=== PATIENT | male | born 1980 | race African-American/Black ===

== ENCOUNTER 2019-03-17 16:51 | Emergency (ER) | payer SELFPAY ==
[2019-03-17 17:01] VITALS: BP 179/103; PULSE 66; RESP 20; TEMP 36.4; O2SAT 100
--- NOTE | 2019-03-17 17:24 | ED.GENADULT ---
HPI - General Adult General Chief complaint: Skin/Abscess/Foreign Body Stated complaint: Pos allergic reaction Time Seen by Provider: 03/17/19 17:24 Source: patient and RN notes reviewed Mode of arrival: ambulatory Limitations: no limitations History of Present Illness HPI narrative: 38-year-old -Turkmen male presents with complaints of sulfa blister, raised, red, and tender rash to bilateral upper extremities and right anterior thigh with intermittent drainage for 21 days. Benadryl, last 03/16/2019 without relief. Oswaldo says he is Allergic to Sulfa and used body soap that contained sulfa. Rash noticed 3 weeks ago and symptoms increased over the last 3 days with redness, warmth, tenderness, and swelling, worse to LT upper extremity. Oswaldo says he had a similar episode related to a sulfa antibiotic about 5 years ago. Denies radiation of tenderness, redness, or swelling. No exacerbating factors. Denies fever or chills. Denies nausea, vomiting, and abdominal pain. Has not sought treatment before now due to loss of insurance. Some parts of this dictation were generated by voice recognition software and may contain typographical and/or grammatical inaccuracies. Related Data Home Medications Medication Instructions Recorded Confirmed diphenhydramine HCl [Benadryl] 25 mg PO Q6H PRN 03/17/19 03/17/19 Allergies Allergy/AdvReac Type Severity Reaction Status Date / Time Sulfa (Sulfonamide Allergy Unknown Blister Verified 03/17/19 17:11 Antibiotics) Review of Systems Review of Systems: Narrative: CONSTITUTIONAL: Denies fever, chills, sweats. EYES: Denies visual changes, redness, discharge. ENT: Denies rhinorrhea, congestion, sore throat, otalgia. CARDIOVASCULAR: Denies chest pain, palpitations, edema. RESPIRATORY: Denies dyspnea, wheezing, cough. GASTROINTESTINAL: Denies abdominal pain, nausea, vomiting, diarrhea. GENITOURINARY: Denies dysuria, hematuria, abnormal discharge. SKIN: Complains of sulfa blister, raised, red, and tender rash to bilateral upper extremities and right anterior thigh. Intermittent drainage. MUSCULOSKELETAL: Denies acute back pain, joint pain, or myalgia. NEUROLOGIC: Denies numbness or focal weakness. PSYCHIATRIC: Denies anxiety or depression. All systems reviewed & are unremarkable except as noted in HPI and below PMFSH Past Medical History Medical History (Updated 03/18/19 @ 15:33 by SAVANNAH Jolley) Hypertension Left knee injury 03/2016- Left anteromedial knee hematoma-Aspiration Surgical History Surgical History (Updated 03/17/19 @ 17:44 by SAVANNAH Jolley) No significant past surgical history Family History Family History (Updated 03/17/19 @ 17:44 by SAVANNAH Jolley) Grandparent Hypertension Social History Social History (Updated 03/17/19 @ 17:45 by SAVANNAH Jolley) Smoking status: Current every day smoker Tobacco type: cigarettes Alcohol intake: never Substance use: never Living arrangements: with family Gender identity (if verbalized by the patient): Male Comments At time of signature, agree with nurse past medical, surgical, social, and family history. There is no relevant family history pertinent to the presenting complaint. Exam Narrative: Exam Narrative: GENERAL: This is a well-nourished, well-developed patient, in no apparent distress. HEAD: normocephalic, atraumatic. EYES: PERRL. Sclera clear/white. Vision is grossly intact. CARDIOVASCULAR: Regular rate and rhythm without murmurs, gallops, or rubs. RESPIRATORY: Clear to auscultation. Breath sounds equal bilaterally. No wheezes, rales, or rhonchi. GASTROINTESTINAL: Abdomen soft, non-tender, nondistended. Bowel sounds are active. No hepato-splenomegaly, or palpable masses. No guarding. SKIN: warm, several areas to bilateral upper extremities with pustules and honey-colored, crusted erosions with collarets of scale. Consist with Impetigo. BUE and small area to RT
--- NOTE | 2019-03-17 17:50 | PC.NURSE ---
Left 2,3,4 fingers having weeping wounds he says is from scratching areas on proximal portions-cleansed with saline and dressed with bandaids
== END 2019-03-17 17:50 | disposition home or self-care (01) ==
PROVIDERS: Emergency Provider Nurse Practitioner Family; PCP Emergency Medicine
DX: L03.012 Cellulitis of left finger (principal); L01.00 Impetigo, unspecified; T78.40XA Allergy, unspecified, initial encounter; F17.210 Nicotine dependence, cigarettes, uncomplicated; I10 Essential (primary) hypertension
CPT/HCPCS: 99213; G0463

== ENCOUNTER 2019-03-23 12:45 | Emergency (ER) | payer SELFPAY ==
[2019-03-23 12:46] VITALS: BP 158/89; PULSE 90; RESP 16; TEMP 36.3; O2SAT 100
[2019-03-23] MEDS: predniSONE 20 MG TABLET 60 MG PO (13:33)
[2019-03-23 13:57] LABS: Basophils Absolute Auto 0.1 K/mm3 (0.0-0.1); Basophils Percent Auto 0.9 % (0.2-1.2); Eosinophils Absolute Auto 0.5 K/mm3 (0-0.3); Eosinophils Percent Auto 5.9 % (0-4.4); Hematocrit 44.1 % (42.0-52.0); Hemoglobin 14.4 g/dL (14.0-18.0); Immature Granulocyte Absolute 0.03 K/mm3 (0.00-0.031); Immature Granulocyte Percent A 0.4 % (0-0.5); Lymphocytes Absolute Auto 1.42 K/mm3 (0.9-3.2); Lymphocytes Percent Auto 18.6 % (18.3-44.2); Mean Corpuscular HGB Conc 32.7 g/dl (32-36); Mean Corpuscular Hemoglobin 28.2 pg (26-34); Mean Corpuscular Volume 86.5 fl (80-100); Mean Platelet Volume 10.9 fl (7.4-10.4); Monocytes Absolute Auto 0.8 K/mm3 (0.1-0.6); Monocytes Percent Auto 10.1 % (2.6-8.5); Neutrophils Absolute Auto 4.9 K/mm3 (1.3-6.7); Neutrophils Percent Auto 64.1 % (45.5-73.1); Platelet Count Result 245 k/mm3 (150-375); Red Cell Distribution Width 13.2 % (11.5-14.5); White Blood Count 7.7 K/mm3 (4.5-10.0)
[2019-03-23 14:09] LABS: Blood Urea Nitrogen 14 mg/dL (9-20); Calcium 9.1 mg/dL (8.4-10.2); Carbon Dioxide 21 mmol/L (22-30); Chloride 108 mmol/L (98-107); Estimated Glomerular Filt Rate > 60; Glucose 97 mg/dL (75-110); Potassium 3.8 mmol/L (3.4-5.0); Sodium 142 mmol/L (137-145)
--- NOTE | 2019-03-23 14:34 | ED.UPPEXIN ---
HPI - Extremity Injury (Upper) General Chief Complaint: Extremity Injury, Upper Stated Complaint: cellulitis Time Seen by Provider: 03/23/19 13:19 Source: patient Mode of arrival: ambulatory Limitations: no limitations History of Present Illness HPI narrative: Patient is a 38-year-old male who presents to emergency department for evaluation of rash has been present for 1 month patient is unsure as to the etiology thought it might be secondary to a sulfa-containing lotion that he had used patient was seen at urgent care started on clindamycin and mupirocin with no improvement patient notes blistering itching rash to the hands and torso and abdomen. Patient denies any fever chills nausea vomiting. Patient has been taking the medications with no improvement has not followed with primary care for this Related Data Allergies Allergy/AdvReac Type Severity Reaction Status Date / Time Sulfa (Sulfonamide Allergy Unknown Blister Verified 03/23/19 12:59 Antibiotics) Review of Systems Review of Systems: All systems reviewed & are unremarkable except as noted in HPI and below PMFSH Past Medical History Medical History Hypertension Left knee injury 03/2016- Left anteromedial knee hematoma-Aspiration Surgical History Surgical History No significant past surgical history Family History Family History (Updated 03/17/19 @ 17:44 by SAVANNAH Jolley) Grandparent Hypertension Social History Social History Smoking status: Current every day smoker Tobacco type: cigarettes Alcohol intake: never Substance use: never Gender identity (if verbalized by the patient): Male Exam Narrative: Exam Narrative: GENERAL: Well-appearing, well-nourished, and in no acute distress. HEAD: Normocephalic, atraumatic. EYES: PERRLA and EOMI. ENT: Nares clear, no rhinorrhea or epistaxis. Mucous membranes moist. EXTREMITIES: Normal range of motion. No edema. SKIN: Warm, dry patient with rash to the torso and extremities with some blistering clear fluid of some of the lesions others with 6 corrugations from itching no purulence lymphangitic streaking noted NEURO: No focal deficits. Alert and oriented x3. Cranial nerves II through XII grossly intact. Normal speech. Neurovascularly intact PSYCH: Normal mood and affect. Course Course Emergency Course: Patient in the room in no distress aware of case findings treatment plan and diagnosis Vital Signs Vital signs: Vital Signs Temperature 97.4 F L 03/23/19 12:46 Pulse Rate 90 03/23/19 12:46 Respiratory Rate 16 03/23/19 12:46 Blood Pressure 158/89 H 03/23/19 12:46 Pulse Oximetry 100 03/23/19 12:46 Temperature 97.4 F L 03/23/19 12:46 Pulse Rate 90 03/23/19 12:46 Respiratory Rate 16 03/23/19 12:46 Blood Pressure 158/89 H 03/23/19 12:46 Pulse Oximetry 100 03/23/19 12:46 MDM - Extremity Injury (Upper) MDM Narrative Medical decision making narrative: Patient in the room with likely allergic syndrome will be referred to his md physician dermatologist and is agreeing to contact his md physician dermatologist tomorrow is afebrile nontoxic-appearing and felt appropriate for outpatient reevaluation also provided with reasons to return Lab Data Result diagrams: 03/23/19 13:47 03/23/19 13:47 Labs: Lab Results 03/23/19 03/23/19 Range/Units 13:47 13:47 WBC 7.7 (4.5-10.0) K/mm3 RBC 5.10 (4.6-6.20) M/mm3 Hgb 14.4 (14.0-18.0) g/dL Hct 44.1 (42.0-52.0) % MCV 86.5 (80-100) fl MCH 28.2 (26-34) pg MCHC 32.7 (32-36) g/dl RDW 13.2 (11.5-14.5) % Plt Count 245 (150-375) k/mm3 MPV 10.9 H (7.4-10.4) fl Immature Gran % (Auto) 0.4 (0-0.5) % Neut % (Auto) 64.1 (45.5-73.1) % Lymph % (Auto) 18.6 (18.3-44.2) % [place] % (Auto) 10.1 H (2.6-8.5) %
== END 2019-03-23 15:49 | disposition home or self-care (01) ==
PROVIDERS: Emergency Medicine Emergency Medical Services; Emergency Provider Emergency Medicine; PCP Emergency Medicine
DX: R21 Rash and other nonspecific skin eruption (principal); I10 Essential (primary) hypertension; F17.210 Nicotine dependence, cigarettes, uncomplicated
CPT/HCPCS: 36415; 80048; 85025; 99283; J7512

== ENCOUNTER 2022-03-12 12:19 | Inpatient (IN) | payer OTHER, SELFPAY ==
[2022-03-12] VITALS (13 sets, daily range): BP systolic 135–148; BP diastolic 66–85; PULSE 57–81; RESP 16–20; TEMP 36.2–36.8; O2SAT 99–100; BMI 34.0
--- NOTE | ~2022-03-12 | XR_ITS ---
Right foot Technique: AP and lateral views were obtained. Clinical History: Swelling, cellulitis Findings: No acute fracture or dislocation is seen. Osseous alignment is anatomic. Mild degenerative change noted on the lateral view at the naviculocuneiform articulations and at the TMT joints. Promin ent dorsal soft tissue swelling is present. Impression: Prominent dorsal soft tissue swelling the foot, consistent with history cellulitis. Mild Mild degenerative change, as detailed above. Reviewed, dictated and finalized at location M. GANG SAWYER Impression: Prominent dorsal soft tissue swelling the foot, consistent with history celluli tis. Mild Mild degenerative change, as detailed above.
--- NOTE | ~2022-03-12 | US_ITS ---
Duplex Sonography of the right extremity: Indication: Swelling, erythema Findings: Sagittal and transverse B-mode images as well as color-flow imaging were performed on the r ight femoral and popliteal veins. B-mode examination was done without and with compression in the tr ansverse plane. There is good visualization of the common femoral, proximal profunda femoral, superf icial femoral, greater saphenous, and popliteal veins. Normal flow was seen on color-flow imaging. N ormal compressibility was demonstrated. Right posterior tibial and peroneal veins are also patent. Impression: No evidence of deep vein thrombosis involving the right lower extremity. Reviewed, dictated and finalized at location M. URAL CENTRE MANAGER Impression: No evidence of deep vein thrombosis involving the right lower extremity.
--- NOTE | ~2022-03-12 | US_ITS ---
Renal-Bladder ultrasound Clinical History: Renal failure Technique: Real-time sonographic imaging of the kidneys and urinary bladder was performed. Findings: The right kidney measures 11.5 cm in length and the left kidney measures 10.4 cm. There is no hydronephrosis or renal calculus identified. Renal cortical echogenicity is within normal limits. No renal mass lesion is identified. The urinary bladder is moderately distended at the time of this exam. No intraluminal echoes are iden tified. No abnormal wall thickening is seen. Impression: Unremarkable ultrasound of the kidneys and urinary bladder. Reviewed, dictated and finalized at location M. R THREAT ANALYST Impression: Unremarkable ultrasound of the kidneys and urinary bladder.
--- NOTE | 2022-03-12 14:35 | ED.SKABFB ---
HPI - Skin/Abscess/Foreign Bdy General Chief complaint: Skin/Abscess/Foreign Body Stated complaint: right leg infection Time Seen by Provider: 03/12/22 14:19 History of Present Illness HPI narrative: Patient is a 41-year-old male here for evaluation of right foot redness and swelling x 7 days. Patient states he has a history of cellulitis in the limb and this feels similar. He saw his PCP 4 days ago who prescribed keflex; patient has been taking this without improvement. States redness and swelling is spreading proximally. He does state he has been admitted for cellulitis in the past. Reports subjective fevers but has not taken his temperature. Patient did have left hip surgery at outside hospital 3 weeks ago. Denies history of DVT. Related Data Home Medications Medication Instructions Recorded Confirmed ascorbic acid (vitamin C) 500 mg 500 mg PO DAILY 03/12/22 03/12/22 chewable tablet atorvastatin 80 mg tablet 80 mg PO HS 03/12/22 03/12/22 cephalexin 500 mg capsule 500 mg PO BID 03/12/22 03/12/22 cholecalciferol (vitamin D3) 1,250 1,250 mcg PO WEEKLY 03/12/22 03/12/22 mcg (50,000 unit) tablet ezetimibe 10 mg tablet 10 mg PO HS 03/12/22 03/12/22 hydroxyzine HCl 25 mg tablet 25 mg PO PRN itch 03/12/22 03/12/22 losartan 100 mg tablet 100 mg PO DAILY 03/12/22 03/12/22 meloxicam 15 mg tablet 15 mg PO DAILY 03/12/22 03/12/22 Allergies Allergy/AdvReac Type Severity Reaction Status Date / Time Sulfa (Sulfonamide Allergy Unknown Blister Verified 03/12/22 14:21 Antibiotics) Review of Systems Review of Systems: Gen: Denies fevers or chills Eyes: Denies eye pain or visual change ENT: Denies congestion Respiratory: Denies shortness of breath or cough CV: Denies chest pain or palpitations GI: Denies abdominal pain nausea, emesis or diarrhea : denies burning, urgency, frequency or hematuria Musculoskeletal: Denies back pain or muscle pain Neuro: Denies numbness, tingling, weakness or focal weakness Skin: Reports redness and swelling to the right lower extremity Except as documented, all other systems reviewed and negative PMFSH Past Medical History Medical History (Updated 03/12/22 @ 15:52 by Mary Almaguer PA-C) Hypertension Left knee injury 03/2016- Left anteromedial knee hematoma-Aspiration Surgical History Surgical History No significant past surgical history Family History Family History (Updated 03/17/19 @ 17:44 by SAVANNAH Jolley) Grandparent Hypertension Social History Social History Smoking packs per day: 0.25 Smoking cigarettes per day: 5.0 Smoking status: Current every day smoker Tobacco type: cigarettes Alcohol intake: never Substance use: never Lack of Transportation: No Lack of Food: Never True Current Housing: I Have Housing Concerned About Future Housing: No Difficulty Paying Gas/Electric Bills: No Difficulty Paying for Meds: No Currently Unemployed: YES Education: Associate Degree Difficulty w/ Childcare or Family Care: No Living arrangements: with family Gender identity (if verbalized by the patient): Male Spiritual care concerns: No Exam Narrative: APPEARANCE: Well appearing, no pain in distress, well-nourished. Head: Normocephalic and atraumatic. EYES: PERRLA/EOMI, conjunctivae clear NOSE: No nasal drainage EARS: External ear normal in appearance THROAT: Oropharynx is clear. Mucous membranes are moist. NECK: Supple. No adenopathy, no masses. RESPIRATORY: Airway patent, respirations nonlabored. Clear to auscultation bilaterally, no rales, rhonchi, wheezing. CARDIOVASCULAR: Regular rate and rhythm without murmurs, rubs, or gallops. ABDOMINAL: Normoactive bowel sounds. Soft, nontender, nondistended. No rebound tenderness or guarding. MUSCULOSKELETAL: Right lower extremity is markedly swollen from the foot
[2022-03-12 14:52] LABS: Basophils Absolute Auto 0.1 K/mm3 (0.0-0.1); Basophils Percent Auto 0.7 % (0.2-1.2); Eosinophils Absolute Auto 0.1 K/mm3 (0-0.3); Eosinophils Percent Auto 0.7 % (0-4.4); Hematocrit 36.6 % (42.0-52.0); Hemoglobin 11.6 g/dL (14.0-18.0); Immature Granulocyte Absolute 0.86 K/mm3 (0.00-0.031); Immature Granulocyte Percent A 5.2 % (0-0.5); Lymphocytes Absolute Auto 1.46 K/mm3 (0.9-3.2); Lymphocytes Percent Auto 8.9 % (18.3-44.2); Mean Corpuscular HGB Conc 31.7 g/dl (32-36); Mean Corpuscular Hemoglobin 27.3 pg (26-34); Mean Corpuscular Volume 86.1 fl (80-100); Mean Platelet Volume 9.6 fl (7.4-10.4); Monocytes Absolute Auto 1.3 K/mm3 (0.1-0.6); Monocytes Percent Auto 7.8 % (2.6-8.5); Neutrophils Absolute Auto 12.6 K/mm3 (1.3-6.7); Neutrophils Percent Auto 76.7 % (45.5-73.1); Platelet Count Result 527 k/mm3 (150-375); Red Blood Count 4.25 M/mm3 (4.6-6.20); Red Cell Distribution Width 13.4 % (11.5-14.5); White Blood Count 16.5 K/mm3 (4.5-10.0)
[2022-03-12 15:01] LABS: Lactic Acid Reflex 1.8 mmol/L (0.7-2.0)
[2022-03-12 15:02] LABS: Alanine Aminotransferase 25 U/L (6-50); Albumin Level 3.5 g/dL (3.5-5.1); Alkaline Phosphatase 138 U/L (38-126); Anion Gap 4 mmol/L (8-16); Aspartate Amino Transferase 30 U/L (17-59); Bilirubin,Total 0.7 mg/dL (0.2-1.3); Blood Urea Nitrogen 18 mg/dL (9-20); Calcium 8.8 mg/dL (8.4-10.2); Carbon Dioxide 26 mmol/L (22-30); Chloride 106 mmol/L (98-107); Estimated CRCL calculation 104 ml/min; Estimated Glomerular Filt Rate > 60; Glucose 123 mg/dL (65-110); Potassium 3.3 mmol/L (3.4-5.0); Sodium 136 mmol/L (137-145)
[2022-03-12 15:17] LABS: INR 1.2; Prothrombin Time 14.3 Seconds (11.1-14.7)
[2022-03-12 15:18] LABS: Partial Thromboplastin Time 35.2 SECONDS (22.3-36.8)
[2022-03-12 15:27] LABS: Influenza A QL RT-PCR Negative (Negative); Influenza B QL RT-PCR Negative (Negative); SARS-CoV-2 RNA PCR Negative
[2022-03-12 15:31] LABS: Hypochromasia 1+ (NORMAL); Platelet Estimate Increased (Adequate)
[2022-03-12 15:32] LABS: Schistocytes None Seen (NORMAL)
[2022-03-12] MEDS: HYDROcodone/acetaminophen (*CRX) 5-325 MG TABLET 1 TAB PO (15:59)
--- NOTE | 2022-03-12 21:33 | PM.IMHP ---
H&P: HPI History of Present Illness Date/Time: 03/12/22 8660 Chief Complaint: Skin abscess Narrative: This is a 41-year-old male patient who has a history of athlete's feet and he has dry scaly peeling skin on the bottom of his feet. The patient stated that he started to pick on the bottom of his right foot several days ago and then his foot started to swell 7 days ago. The patient saw his primary care doctor 4 days ago who was prescribed Keflex the patient stated that he did not have any improvement and the redness and swelling spread proximally. The patient has had a history of having cellulitis in the past. The patient is unsure if he has had any fever. His right leg is red and swollen. The patient is recovering from a left hip surgery anterior review from outside facility 3 weeks ago. He denies any DVT. His white count is 16.5 H&H 11.6 and 36.6. Sodium is 136. Potassium 3.3. The patient is negative for influenza A/B and COVID. The patient did have a venous Doppler today and is read as no evidence of deep vein thrombosis involving the right lower extremity as per radiology. The patient was started on vancomycin and given [place] in the emergency room. The patient is being admitted to observation status on the date of service 03/12/2022 Review of Systems Review of Systems: See HPI All systems reviewed & are unremarkable except as noted in HPI and below Constitutional: Constitutional: Reports as per HPI and Reports no additional constitutional complaints Eyes: Eyes: Reports as per HPI and Reports no additional eye complaints ENT: Reports system reviewed and no additional complaints, except as documented and Reports Normal hearing present Cardiovascular: Cardiovascular: Reports no additional cardiovascular complaints Respiratory: Respiratory: Reports no additional respiratory complaints and Reports no additional respiratory complaints Gastrointestinal: Gastrointestinal: Reports as per HPI and Reports no additional gastrointestinal complaints Musculoskeletal: Musculoskeletal: Reports no additional musculoskeletal complaints Integumentary/Breasts: Skin/Breast: Reports system reviewed and no additional complaints, except as docu and Reports as per HPI Neurologic: Reports system reviewed and no additional complaints, except as documented, Reports as per HPI and Reports Normal hearing present Psychiatric: Psychiatric: Reports no additional psychiatric complaints and Reports as per HPI Endocrine: Endocrine: Reports no additional endocrine complaints Hematologic/Lymphatic: Hematologic/Lymphatic: Reports no additional hematologic/lymphatic complaints Allergic/Immunologic: Allergic/Immunologic: Reports no additional allergic/immunologic complaints PMFSH Past Medical History Medical History (Updated 03/12/22 @ 21:59 by Tia Culp NP) Eczema Hyperlipidemia Hypertension Left knee injury 03/2016- Left anteromedial knee hematoma-Aspiration Emily-Schlatter/osteochondroses Osteoarthritis Vitamin D deficiency Surgical History Surgical History (Updated 03/12/22 @ 21:42 by Tia Culp NP) History of left hip replacement Total knee replacement status Bilateral Family History Family History (Updated 03/12/22 @ 21:42 by Tia Culp NP) Grandparent Hypertension Glaucoma MIKE on CPAP Social History Social History (Updated 03/12/22 @ 21:40 by Tia Culp NP) Social History: The patient stated that he smokes 1 pack in about 3-4 days. The patient is currently unemployed. He has a significant other but is classified is single. He has no children. The patient stated that he has not smoked in a week. He denies any alcohol disease. Code status full code Smoking packs per day: 0.25 Smoking cigarettes per day: 5.0 Smoking status: Current every day smoker Tobacco type: cigarettes Alcohol intake: never Substance use: never Lack of Transportation: No Lack of Food: Never Shreyas
[2022-03-12] MEDS: POTASSIUM CHLORIDE 20 MEQ PACKET (FOR LIQUID) PO (23:59)
[2022-03-13 06:00] VITALS: BP 146/90; PULSE 61; RESP 16; TEMP 35.8; O2SAT 99
[2022-03-13 06:33] LABS: Basophils Absolute Auto 0.1 K/mm3 (0.0-0.1); Basophils Percent Auto 0.7 % (0.2-1.2); Eosinophils Absolute Auto 0.3 K/mm3 (0-0.3); Eosinophils Percent Auto 1.5 % (0-4.4); Hematocrit 32.7 % (42.0-52.0); Hemoglobin 10.2 g/dL (14.0-18.0); Immature Granulocyte Absolute 0.97 K/mm3 (0.00-0.031); Immature Granulocyte Percent A 5.9 % (0-0.5); Lymphocytes Absolute Auto 1.65 K/mm3 (0.9-3.2); Mean Corpuscular HGB Conc 31.2 g/dl (32-36); Mean Corpuscular Hemoglobin 27.2 pg (26-34); Mean Corpuscular Volume 87.2 fl (80-100); Mean Platelet Volume 9.5 fl (7.4-10.4); Monocytes Absolute Auto 1.4 K/mm3 (0.1-0.6); Monocytes Percent Auto 8.6 % (2.6-8.5); Neutrophils Percent Auto 73.3 % (45.5-73.1); Platelet Count Result 445 k/mm3 (150-375); Red Blood Count 3.75 M/mm3 (4.6-6.20); Red Cell Distribution Width 13.4 % (11.5-14.5); White Blood Count 16.4 K/mm3 (4.5-10.0)
[2022-03-13 06:38] LABS: Alanine Aminotransferase 24 U/L (6-50); Albumin Level 2.9 g/dL (3.5-5.1); Alkaline Phosphatase 114 U/L (38-126); Anion Gap 6 mmol/L (8-16); Aspartate Amino Transferase 28 U/L (17-59); Bilirubin,Total 0.5 mg/dL (0.2-1.3); Blood Urea Nitrogen 17 mg/dL (9-20); Calcium 8.1 mg/dL (8.4-10.2); Carbon Dioxide 24 mmol/L (22-30); Chloride 107 mmol/L (98-107); Estimated CRCL calculation 104 ml/min; Estimated Glomerular Filt Rate > 60; Glucose 127 mg/dL (65-110); Lactate Dehydrogenase 163 U/L (120-246); Potassium 3.3 mmol/L (3.4-5.0); Sodium 137 mmol/L (137-145)
[2022-03-13 07:03] LABS: Hypochromasia 1+ (NORMAL); Platelet Estimate Increased (Adequate); Stomatocytes 1+ (NORMAL)
[2022-03-13 07:04] LABS: Schistocytes None Seen (NORMAL)
[2022-03-13] MEDS: MELOXICAM 7.5 MG TABLET 15 MG PO (08:33)
[2022-03-13] MEDS: ERGOCALCIFEROL 50,000 UNITS CAPSULE 50000 UNITS PO (08:33)
[2022-03-13] MEDS: LOSARTAN POTASSIUM 100 MG TABLET PO (08:33)
[2022-03-13] MEDS: ENOXAPARIN 40 MG/0.4 ML SYRINGE SUB-Q (08:33)
[2022-03-13] MEDS: ASCORBIC ACID 500 MG TABLET PO (08:34)
[2022-03-13] MEDS: MUPIROCIN 2% OINT 22 GM TUBE 1 APPLIC TOPICAL ×2 (08:34→16:54)
[2022-03-13] MEDS: EUCERIN CREAM 120 GM JAR 1 APPLIC TOPICAL (08:34)
[2022-03-13 14:00] VITALS: BP 138/65; PULSE 68; RESP 14; TEMP 36.3; O2SAT 100
[2022-03-13] MEDS: POTASSIUM CHLORIDE 20 MEQ TABLET 40 MEQ PO (14:29)
--- NOTE | 2022-03-13 15:41 | PM.IMPN ---
Progress Note: A&P Assessment and Plan (1) Cellulitis: Code(s): L03.90 - Cellulitis, unspecified Status: Acute Assessment and Plan: Patient has had history of cellulitis in the past some same foot. Lasted since about 5 years ago. Infection site identified between the 4th and 5th toes of the right foot. Said that he was picking at some skin and had torn some skin off of the foot. No history of diabetes. Will order A1c. Antibiotics changed to vancomycin and cefepime per up-to-date guidelines Tailor antibiotic to culture results. Leukocytosis present Blood cultures pending Patient with significant edema. Add 40 mg IV Lasix q.d.. Advise limb elevation (2) Hypertension: Code(s): I10 - Essential (primary) hypertension Status: Acute Assessment and Plan: -continue with losartan (3) Hyperlipidemia: Code(s): E78.5 - Hyperlipidemia, unspecified Status: Acute Assessment and Plan: -continue with Zetia (4) Hypokalemia: Code(s): E87.6 - Hypokalemia Status: Acute Assessment and Plan: Replace as necessary Magnesium level normal. Time Spent With Patient Time with patient: 25 - 35 minutes Subjective Date/time seen: 03/13/22 15:41 Interval history: Patient resting in bed comfortably. Patient states that right foot swelling began a little over a week ago. Patient had been picking at some dried skin on his foot and he woke up the next day with significant edema to the right foot extending up the leg. Patient had associated fevers in the beginning but has not had a fever and a couple days. Patient has no known history of diabetes. Patient is status post left hip replacement 3 weeks ago. Patient denies pain but states that the foot feels very heavy and has a lot of pressure on the skin. No history of neuropathy. Review of Systems Review of Systems: All systems reviewed & are unremarkable except as noted in HPI and below Exam Narrative: GENERAL: Comfortable, no acute distress HENMT: moist mucous membranes EYES: EOM intact b/l NECK: no lymphadenopathy RESPIRATORY: clear to auscultation CARDIO: RRR GI: soft, nontender, bowel sounds present SKIN: Left limb from the knee down is edematous and erythematous. Skin is warm to touch. Plus three pitting edema. Blistering noted over left distal cortés. Dorsalis pedis pulses palpable. EXTREMITIES: Patient able to move left ankle and left knee. Although due to edema range of motion is limited. Objective Data Vital Signs Vital Signs: Vital Signs - 24 hr 03/12/22 15:46 03/12/22 15:47 03/12/22 15:57 Temperature Pulse Rate 67 Respiratory Rate 16 Blood Pressure 138/71 Pulse Oximetry 100 100 100 Oxygen Delivery 03/12/22 16:00 03/12/22 16:15 03/12/22 16:17 Temperature Pulse Rate Respiratory Rate 16 Blood Pressure 146/82 H Pulse Oximetry 100 99 100 Oxygen Delivery 03/12/22 16:32 03/12/22 18:01 03/12/22 21:35 Temperature 97.2 F L Pulse Rate 62 69 Respiratory Rate 16 16 Blood Pressure 138/70 146/78 H Pulse Oximetry 100 Oxygen Delivery Room Air 03/13/22 06:00 03/13/22 08:00 03/13/22 14:00 Temperature 96.4 F L 97.4 F L Pulse Rate 61 68 Respiratory Rate 16 14 Blood Pressure 146/90 H 138/65 Pulse Oximetry 99 100 Oxygen Delivery Room Air Intake/Output Intake/Output: Intake & Output 03/10/22 03/11/22 03/12/22 03/13/22 23:59 23:59 23:59 23:59 Intake Total 440 320 Balance 440 320 Meds/Results Medications: Active Medications Generic Name Dose Route Start Last Admin Trade Name Freq PRN Reason Stop Dose Admin Ascorbic Acid 500 mg 03/13/22 09:00 03/13/22 08:34 Ascorbic Acid 500 Mg Tablet PO 500 mg DAILY [facility]1983 Administration Atorvastatin Calcium 80 mg 03/13/22 21:00 Atorvastatin 40 Mg Tablet PO [facility] Ezetimibe 10 mg 03/13/22 21:00 Ezetimibe 10 Mg Tablet
[2022-03-13] MEDS: ATORVASTATIN 40 MG TABLET 80 MG PO (20:06)
[2022-03-13] MEDS: PHARMACIST COMMUNICATION ORDER 1 EACH XX (20:07)
[2022-03-13] MEDS: EZETIMIBE 10 MG TABLET PO (20:07)
[2022-03-13 22:00] VITALS: BP 132/73; PULSE 66; RESP 14; TEMP 36.2; O2SAT 100
[2022-03-14 03:01] LABS: Basophils Absolute Auto 0.1 K/mm3 (0.0-0.1); Basophils Percent Auto 0.5 % (0.2-1.2); Eosinophils Absolute Auto 0.2 K/mm3 (0-0.3); Eosinophils Percent Auto 1.3 % (0-4.4); Hematocrit 32.2 % (42.0-52.0); Hemoglobin 10.2 g/dL (14.0-18.0); Immature Granulocyte Absolute 0.77 K/mm3 (0.00-0.031); Immature Granulocyte Percent A 4.7 % (0-0.5); Lymphocytes Absolute Auto 1.82 K/mm3 (0.9-3.2); Lymphocytes Percent Auto 11.1 % (18.3-44.2); Mean Corpuscular HGB Conc 31.7 g/dl (32-36); Mean Corpuscular Hemoglobin 27.5 pg (26-34); Mean Corpuscular Volume 86.8 fl (80-100); Mean Platelet Volume 9.4 fl (7.4-10.4); Monocytes Absolute Auto 1.3 K/mm3 (0.1-0.6); Monocytes Percent Auto 8.1 % (2.6-8.5); Neutrophils Absolute Auto 12.2 K/mm3 (1.3-6.7); Neutrophils Percent Auto 74.3 % (45.5-73.1); Platelet Count Result 451 k/mm3 (150-375); Red Blood Count 3.71 M/mm3 (4.6-6.20); Red Cell Distribution Width 13.2 % (11.5-14.5); White Blood Count 16.4 K/mm3 (4.5-10.0)
[2022-03-14 03:12] LABS: Alanine Aminotransferase 23 U/L (6-50); Albumin Level 2.9 g/dL (3.5-5.1); Alkaline Phosphatase 111 U/L (38-126); Anion Gap 3 mmol/L (8-16); Aspartate Amino Transferase 28 U/L (17-59); Bilirubin,Total 0.7 mg/dL (0.2-1.3); Blood Urea Nitrogen 16 mg/dL (9-20); Calcium 8.3 mg/dL (8.4-10.2); Carbon Dioxide 24 mmol/L (22-30); Chloride 108 mmol/L (98-107); Estimated CRCL calculation 65 ml/min; Estimated Glomerular Filt Rate 50; Glucose 96 mg/dL (65-110); Potassium 3.5 mmol/L (3.4-5.0); Sodium 135 mmol/L (137-145)
[2022-03-14 03:36] LABS: Vancomycin Trough 24.7 ug/mL (10.0-20.0)
[2022-03-14 05:13] LABS: Magnesium 2.1 mg/dL (1.6-2.3)
[2022-03-14 06:00] VITALS: BP 136/80; PULSE 70; RESP 14; TEMP 35.5; O2SAT 100
[2022-03-14] MEDS: ENOXAPARIN 40 MG/0.4 ML SYRINGE SUB-Q (10:19)
[2022-03-14] MEDS: EUCERIN CREAM 120 GM JAR 1 APPLIC TOPICAL (10:20)
[2022-03-14] MEDS: LOSARTAN POTASSIUM 100 MG TABLET PO (10:20)
[2022-03-14] MEDS: ASCORBIC ACID 500 MG TABLET PO (10:20)
[2022-03-14 11:22] LABS: Hemoglobin A1C 5.3 % (<5.7)
[2022-03-14 14:00] VITALS: BP 130/75; PULSE 68; RESP 14; TEMP 35.8; O2SAT 100
--- NOTE | 2022-03-14 15:04 | PM.IMPN ---
Progress Note: A&P Assessment and Plan (1) Cellulitis: Code(s): L03.90 - Cellulitis, unspecified Status: Acute Assessment and Plan: Patient has had history of cellulitis in the past some same foot. Lasted since about 5 years ago. Infection site identified between the 4th and 5th toes of the right foot. Said that he was picking at some skin and had torn some skin off of the foot. No history of diabetes. Will order A1c. Vancomycin and cefepime per up-to-date guidelines Tailor antibiotic to culture results. White blood cell count on admission 16.5. White blood cell count has remained at this level since admission. Blood cultures no growth to date Advise limb elevation (2) MITZI (acute kidney injury): Code(s): N17.9 - Acute kidney failure, unspecified Status: Acute Assessment and Plan: 03/14/22 patient's creatinine elevated to 1.8 from 1.1. This could be due to patient being on Zosyn and vancomycin. No signs of dehydration on labs or exam Originally planned to give Lasix for edema but will hold this due to elevated creatinine Will monitor for now. Suspect that this will correct itself with discontinuation of Zosyn. Patient now on cefepime and vancomycin. (3) Hypokalemia: Code(s): E87.6 - Hypokalemia Status: Acute Assessment and Plan: Replace as necessary Magnesium level normal. (4) Hypertension: Code(s): I10 - Essential (primary) hypertension Status: Acute Assessment and Plan: continue with losartan Subjective Date/time seen: 03/14/22 15:04 Interval history: Patient states that right foot swelling began a little over a week ago. Patient had been picking at some dried skin on his foot and he woke up the next day with significant edema to the right foot extending up the leg. Patient had associated fevers in the beginning but has not had a fever and a couple days. Patient has no known history of diabetes. Patient is status post left hip replacement 3 weeks ago. Patient denies pain but states that the foot feels very heavy and has a lot of pressure on the skin. No history of neuropathy. No new complaints Review of Systems Review of Systems: All systems reviewed & are unremarkable except as noted in HPI and below Exam Narrative: GENERAL: Comfortable, no acute distress HENMT: moist mucous membranes EYES: EOM intact b/l NECK: no lymphadenopathy RESPIRATORY: clear to auscultation CARDIO: RRR GI: soft, nontender, bowel sounds present SKIN: Left limb from the knee down is edematous and erythematous. Skin is warm to touch. Plus three pitting edema. Blistering noted over left distal cortés. Dorsalis pedis pulses palpable. EXTREMITIES: Patient able to move left ankle, left toes and left knee. Although due to edema range of motion is limited. Objective Data Vital Signs Vital Signs: Vital Signs - 24 hr 03/13/22 22:00 03/14/22 06:00 03/14/22 08:00 Temperature 97.2 F L 96 F L Pulse Rate 66 70 Respiratory Rate 14 14 Blood Pressure 132/73 136/80 Pulse Oximetry 100 100 Oxygen Delivery Room Air 03/14/22 14:00 Temperature 96.5 F L Pulse Rate 68 Respiratory Rate 14 Blood Pressure 130/75 Pulse Oximetry 100 Oxygen Delivery Intake/Output Intake/Output: Intake & Output 03/11/22 03/12/22 03/13/22 03/14/22 23:59 23:59 23:59 23:59 Intake Total 440 870 380 Balance 440 870 380 Meds/Results Medications: Active Medications Generic Name Dose Route Start Last Admin Trade Name Freq PRN Reason Stop Dose Admin Ascorbic Acid 500 mg 03/13/22 09:00 03/14/22 10:20 Ascorbic Acid 500 Mg Tablet PO 500 mg DAILY VONNIE Administration Atorvastatin Calcium 80 mg 03/13/22 21:00 03/13/22 20:06 Atorvastatin 40 Mg Tablet PO 80 mg HS VONNIE Administration Ezetimibe 10 mg 03/13/22 21:00 03/13/22 20:07 Ezetimibe 10 Mg Tablet PO 10 mg HS VONNIE Administration [place]
[2022-03-14] MEDS: ATORVASTATIN 40 MG TABLET 80 MG PO (20:34)
[2022-03-14] MEDS: EZETIMIBE 10 MG TABLET PO (20:35)
[2022-03-14 21:00] VITALS: BP 130/79; PULSE 71; RESP 16; TEMP 36.4; O2SAT 100
[2022-03-15 04:35] VITALS: BP 141/90; PULSE 65; RESP 16; TEMP 36.4; O2SAT 100
[2022-03-15 06:38] LABS: Basophils Absolute Auto 0.1 K/mm3 (0.0-0.1); Basophils Percent Auto 0.6 % (0.2-1.2); Eosinophils Absolute Auto 0.2 K/mm3 (0-0.3); Eosinophils Percent Auto 1.5 % (0-4.4); Hematocrit 34.7 % (42.0-52.0); Hemoglobin 10.8 g/dL (14.0-18.0); Immature Granulocyte Absolute 0.63 K/mm3 (0.00-0.031); Immature Granulocyte Percent A 3.9 % (0-0.5); Lymphocytes Percent Auto 12.5 % (18.3-44.2); Mean Corpuscular HGB Conc 31.1 g/dl (32-36); Mean Corpuscular Hemoglobin 27.4 pg (26-34); Mean Corpuscular Volume 88.1 fl (80-100); Mean Platelet Volume 9.5 fl (7.4-10.4); Monocytes Absolute Auto 1.3 K/mm3 (0.1-0.6); Monocytes Percent Auto 7.9 % (2.6-8.5); Neutrophils Absolute Auto 11.8 K/mm3 (1.3-6.7); Neutrophils Percent Auto 73.6 % (45.5-73.1); Platelet Count Result 469 k/mm3 (150-375); Red Blood Count 3.94 M/mm3 (4.6-6.20); Red Cell Distribution Width 13.2 % (11.5-14.5)
[2022-03-15 06:52] LABS: Alanine Aminotransferase 23 U/L (6-50); Albumin Level 3.2 g/dL (3.5-5.1); Alkaline Phosphatase 112 U/L (38-126); Anion Gap 5 mmol/L (8-16); Aspartate Amino Transferase 29 U/L (17-59); Bilirubin,Total 0.7 mg/dL (0.2-1.3); Blood Urea Nitrogen 22 mg/dL (9-20); Calcium 8.5 mg/dL (8.4-10.2); Carbon Dioxide 22 mmol/L (22-30); Chloride 109 mmol/L (98-107); Estimated CRCL calculation 51 ml/min; Estimated Glomerular Filt Rate 38; Glucose 91 mg/dL (65-110); Potassium 3.9 mmol/L (3.4-5.0); Sodium 136 mmol/L (137-145)
--- NOTE | 2022-03-15 09:30 | PM.IMPN ---
Progress Note: A&P Assessment and Plan (1) Cellulitis: Code(s): L03.90 - Cellulitis, unspecified Status: Acute Assessment and Plan: history of cellulitis in the past some same foot Infection site identified between the 4th and 5th toes of the right foot. Vancomycin and cefepime, add flagyl since WBC is still elevated Tailor antibiotic to culture results. White blood cell count on admission 16.5. currently 16.0 Blood cultures no growth to date Advise limb elevation (2) MITZI (acute kidney injury): Code(s): N17.9 - Acute kidney failure, unspecified Status: Acute Assessment and Plan: 03/14/22 patient's creatinine elevated to 1.8 from 1.1. Currently 2.30 Most likely ATN from vanco and zosyn No signs of dehydration on labs or exam Fena score is 1.0 indicating ATN, intrinsic disease Consider nephrology if continues to worsen. Ultrasound negative for any abnormalities Patient now on cefepime and vancomycin, added flagyl Strict I&Os (3) Hypokalemia: Code(s): E87.6 - Hypokalemia Status: Acute Assessment and Plan: Currently 3.9 Replace as necessary Magnesium level normal. (4) Hypertension: Code(s): I10 - Essential (primary) hypertension Status: Acute Assessment and Plan: BP is 141/90 Stop the losartan for now Add amlodipine for now Continue to trend Time Spent With Patient Time with patient: Greater than 35 minutes Subjective Date/time seen: 03/15/22929 Interval history: 03/15/22929 Patient is doing ok. He denies any chest pain shortness of breath, nausea, vomiting, diarrhea, or constipation. He stated that he feels ok, he is just having problems with his swelling being persistent. Renal function is also worsening, will need to get nephrology on board if not better tomorrow. 03/14/22? 15:04 Patient states that right foot swelling began a little over a week ago.? Patient had been picking at some dried skin on his foot and he woke up the next day with significant edema to the right foot extending up the leg.? Patient had associated fevers in the beginning but has not had a fever and a couple days.? Patient has no known history of diabetes.? Patient is status post left hip replacement 3 weeks ago.? Patient denies pain but states that the foot feels very heavy and has a lot of pressure on the skin.? No history of neuropathy. 03/13/22? 15:41 Patient resting in bed comfortably.? Patient states that right foot swelling began a little over a week ago.? Patient had been picking at some dried skin on his foot and he woke up the next day with significant edema to the right foot extending up the leg.? Patient had associated fevers in the beginning but has not had a fever and a couple days.? Patient has no known history of diabetes.? Patient is status post left hip replacement 3 weeks ago.? Patient denies pain but states that the foot feels very heavy and has a lot of pressure on the skin.? No history of neuropathy. 03/12/22? 1350 This is a 41-year-old male patient who has a history of athlete's feet and he has dry scaly peeling skin on the bottom of his feet.? The patient stated that he started to pick on the bottom of his right foot several days ago and then his foot started to swell 7 days ago.? The patient saw his primary care doctor 4 days ago who was prescribed Keflex the patient stated that he did not have any improvement and the redness and swelling spread proximally.? The patient has had a history of having cellulitis in the past.? The patient is unsure if he has had any fever.? His right leg is red and swollen.? The patient is recovering from a left hip surgery anterior review from outside facility 3 weeks ago.? He denies any DVT.? His white count is 16.5 H&H 11.6 and 36.6.? Sodium is 136.? Potassium 3.3.? The patient is negative for influenza A/B and COVID.? The patient did have a venous Doppler
--- NOTE | 2022-03-15 09:30 | P.PNIM_ITS ---
Progress Note: A&P Assessment and Plan (1) Cellulitis: Code(s): L03.90 - Cellulitis, unspecified Status: Acute Assessment and Plan: * history of cellulitis in the past some same foot * Infection site identified between the 4th and 5th toes of the right foot. * Vancomycin and cefepime, add flagyl since WBC is still elevated * Tailor antibiotic to culture results. * White blood cell count on admission 16.5. currently 16.0 * Blood cultures no growth to date * Advise limb elevation (2) MITZI (acute kidney injury): Code(s): N17.9 - Acute kidney failure, unspecified Status: Acute Assessment and Plan: * 03/14/22 patient's creatinine elevated to 1.8 from 1.1. * Currently 2.30 * Most likely ATN from vanco and zosyn * No signs of dehydration on labs or exam * Fena score is 1.0 indicating ATN, intrinsic disease * Consider nephrology if continues to worsen. * Ultrasound negative for any abnormalities * Patient now on cefepime and vancomycin, added flagyl * Strict I&Os (3) Hypokalemia: Code(s): E87.6 - Hypokalemia Status: Acute Assessment and Plan: * Currently 3.9 * Replace as necessary * Magnesium level normal. (4) Hypertension: Code(s): I10 - Essential (primary) hypertension Status: Acute Assessment and Plan: * BP is 141/90 * Stop the losartan for now * Add amlodipine for now * Continue to trend Time Spent With Patient Time with patient: Greater than 35 minutes Subjective Date/time seen: 03/15/22929 Interval history: 03/15/22929 Patient is doing ok. He denies any chest pain shortness of breath, nausea, vomiting, diarrhea, or constipation. He stated that he feels ok, he is just having problems with his swelling being persistent. Renal function is also worsening, will need to get nephrology on board if not better tomorrow. 03/14/22? 15:04 Patient states that right foot swelling began a little over a week ago.? Patient had been picking at some dried skin on his foot and he woke up the next day with significant edema to the right foot extending up the leg.? Patient had associated fevers in the beginning but has not had a fever and a couple days.? Patient has no known history of diabetes.? Patient is status post left hip replacement 3 weeks ago.? Patient denies pain but states that the foot feels very heavy and has a lot of pressure on the skin.? No history of neuropathy. 03/13/22? 15:41 Patient resting in bed comfortably.? Patient states that right foot swelling began a little over a week ago.? Patient had been picking at some dried skin on his foot and he woke up the next day with significant edema to the right foot extending up the leg.? Patient had associated fevers in the beginning but has not had a fever and a couple days.? Patient has no known history of diabetes.? Patient is status post left hip replacement 3 weeks ago.? Patient denies pain but states that the foot feels very heavy and has a lot of pressure on the skin.? No history of neuropathy. 03/12/22? 5709 This is a 41-year-old male patient who has a history of athlete's feet and he has dry scaly peeling skin on the bottom of his feet.? The patient stated that he started to pick on the bottom of his right foot several days ago and then his foot started to swell 7 days ago.? The patient saw his primary care doctor 4 days ago who was prescribed Keflex the patient stated that he did not have any improvement and the redness and swelling spread proximally.? The patien
[2022-03-15] MEDS: EUCERIN CREAM 120 GM JAR 1 APPLIC TOPICAL (09:47)
[2022-03-15] MEDS: ASCORBIC ACID 500 MG TABLET PO (09:47)
[2022-03-15] MEDS: ENOXAPARIN 40 MG/0.4 ML SYRINGE SUB-Q (09:47)
[2022-03-15] MEDS: amLODIPine BESYLATE 5 MG TABLET 10 MG PO (09:47)
[2022-03-15 10:48] VITALS: O2SAT 99
[2022-03-15 13:19] LABS: Appearance Urine Clear (Clear); Bilirubin Urine Negative (Negative); Blood Urine Negative (Negative); Color Urine Yellow (Yellow); Glucose Urine UA Negative (Negative); Ketones Urine Negative (Negative); Leukocyte Esterase Ur Negative LEU/UL (Negative); Nitrate Urine Negative (Negative); Protein Urine Trace mg/dL (Negative); Urobilinogen Urine 0.2 mg/dL (<2.0); pH Urine 5.5 (5.0-9.0)
[2022-03-15 13:22] LABS: Bacteria Urine Trace /hpf; Mucus Urine Rare /lpf; RBC Urine 0-2 /hpf (0-2); Squamous Epithelial Cell Urine Rare /hpf (Few); WBC Urine 0-3 /hpf
[2022-03-15 13:25] LABS: Add Urine Microscopic? NO
[2022-03-15 14:00] VITALS: BP 133/77; PULSE 68; RESP 16; TEMP 35.9; O2SAT 100
[2022-03-15 14:02] LABS: Creatinine Urine 88.4 mg/dL; Urea Random Urine 325 MG/DL
[2022-03-15 14:04] LABS: Sodium Urine Random 53 meq/L
[2022-03-15] MEDS: metroNIDAZOLE 500 MG/ISO 100ML 500 MG/100 ML BAG 100 MG IVPB ×2 (17:00→20:52)
[2022-03-15] MEDS: ATORVASTATIN 40 MG TABLET 80 MG PO (20:01)
[2022-03-15] MEDS: EZETIMIBE 10 MG TABLET PO (20:01)
[2022-03-15 22:00] VITALS: BP 149/85; PULSE 66; RESP 16; TEMP 36.4; O2SAT 100
[2022-03-16 06:00] VITALS: BP 150/88; PULSE 63; RESP 14; TEMP 35.9; O2SAT 100
[2022-03-16] MEDS: metroNIDAZOLE 500 MG/ISO 100ML 500 MG/100 ML BAG 100 MG IVPB ×3 (06:00→21:28)
[2022-03-16 08:27] LABS: Basophils Absolute Auto 0.1 K/mm3 (0.0-0.1); Basophils Percent Auto 0.6 % (0.2-1.2); Eosinophils Absolute Auto 0.3 K/mm3 (0-0.3); Eosinophils Percent Auto 1.7 % (0-4.4); Hematocrit 33.1 % (42.0-52.0); Hemoglobin 10.5 g/dL (14.0-18.0); Immature Granulocyte Absolute 0.31 K/mm3 (0.00-0.031); Lymphocytes Absolute Auto 1.44 K/mm3 (0.9-3.2); Lymphocytes Percent Auto 9.2 % (18.3-44.2); Mean Corpuscular HGB Conc 31.7 g/dl (32-36); Mean Corpuscular Hemoglobin 27.5 pg (26-34); Mean Corpuscular Volume 86.6 fl (80-100); Mean Platelet Volume 9.3 fl (7.4-10.4); Monocytes Absolute Auto 1.3 K/mm3 (0.1-0.6); Monocytes Percent Auto 8.6 % (2.6-8.5); Neutrophils Absolute Auto 12.2 K/mm3 (1.3-6.7); Neutrophils Percent Auto 77.9 % (45.5-73.1); Platelet Count Result 443 k/mm3 (150-375); Red Blood Count 3.82 M/mm3 (4.6-6.20); Red Cell Distribution Width 13.2 % (11.5-14.5); White Blood Count 15.6 K/mm3 (4.5-10.0)
[2022-03-16 08:28] LABS: Alanine Aminotransferase 27 U/L (6-50); Albumin Level 3.3 g/dL (3.5-5.1); Alkaline Phosphatase 115 U/L (38-126); Anion Gap 5 mmol/L (8-16); Aspartate Amino Transferase 29 U/L (17-59); Bilirubin,Total 0.6 mg/dL (0.2-1.3); Blood Urea Nitrogen 21 mg/dL (9-20); Calcium 8.7 mg/dL (8.4-10.2); Carbon Dioxide 25 mmol/L (22-30); Chloride 109 mmol/L (98-107); Estimated CRCL calculation 47 ml/min; Estimated Glomerular Filt Rate 34; Glucose 95 mg/dL (65-110); Magnesium 2.3 mg/dL (1.6-2.3); Potassium 3.9 mmol/L (3.4-5.0); Sodium 139 mmol/L (137-145)
[2022-03-16] MEDS: ENOXAPARIN 40 MG/0.4 ML SYRINGE SUB-Q (09:36)
[2022-03-16] MEDS: amLODIPine BESYLATE 5 MG TABLET 10 MG PO (09:36)
[2022-03-16] MEDS: EUCERIN CREAM 120 GM JAR 1 APPLIC TOPICAL (09:36)
[2022-03-16] MEDS: ASCORBIC ACID 500 MG TABLET PO (09:36)
[2022-03-16] MEDS: MUPIROCIN 2% OINT 22 GM TUBE 1 APPLIC TOPICAL ×2 (09:36→17:34)
--- NOTE | 2022-03-16 10:00 | PM.IMPN ---
Progress Note: A&P Assessment and Plan (1) Cellulitis: Code(s): L03.90 - Cellulitis, unspecified Status: Acute Assessment and Plan: history of cellulitis in the past some same foot Redness, and warmth is dissipating, swelling is still prominent Infection site identified between the 4th and 5th toes of the right foot. Vancomycin and cefepime, add flagyl since WBC is still elevated Tailor antibiotic to culture results. White blood cell count on admission 16.5. currently 16.0 Blood cultures no growth to date Advise limb elevation (2) MITZI (acute kidney injury): Code(s): N17.9 - Acute kidney failure, unspecified Status: Acute Assessment and Plan: 03/14/22 patient's creatinine elevated to 1.8 from 1.1. Currently 2.50 Most likely ATN from vanco and zosyn No signs of dehydration on labs or exam Fena score is 1.0 indicating ATN, intrinsic disease Consider nephrology if continues to worsen. Ultrasound negative for any abnormalities Patient now on cefepime and vancomycin, added flagyl Strict I&Os (3) Hypokalemia: Code(s): E87.6 - Hypokalemia Status: Acute Assessment and Plan: Currently 3.9 Replace as necessary Magnesium level normal. (4) Hypertension: Code(s): I10 - Essential (primary) hypertension Status: Acute Assessment and Plan: BP is 150/88 Stop the losartan for now Continue amlodipine, add hydralazine Continue to trend Plan tried to start a new IV however not successful Time Spent With Patient Time: 52 minutes Time with patient: Greater than 35 minutes Subjective Date/time seen: 03/16/22 10:00 Interval history: 03/16/22 1000 Upon arrival To the room patient was noted to be profusely vomiting. Patient stated that he thinks that is the coach cleaner or the small as within the hospital. Patient stated that it just makes him very nauseated. He is able to eat and states that he has no sweats fevers or chills. He denies any chest pain, no shortness of breath. patient's leg does look better will have leg wrapped. Did consult Nephrology due to increased creatinine. 03/15/22 0930 Patient is doing ok. He denies any chest pain shortness of breath, nausea, vomiting, diarrhea, or constipation. He stated that he feels ok, he is just having problems with his swelling being persistent. Renal function is also worsening, will need to get nephrology on board if not better tomorrow. 03/14/22? 15:04 Patient states that right foot swelling began a little over a week ago.? Patient had been picking at some dried skin on his foot and he woke up the next day with significant edema to the right foot extending up the leg.? Patient had associated fevers in the beginning but has not had a fever and a couple days.? Patient has no known history of diabetes.? Patient is status post left hip replacement 3 weeks ago.? Patient denies pain but states that the foot feels very heavy and has a lot of pressure on the skin.? No history of neuropathy. 03/13/22? 15:41 Patient resting in bed comfortably.? Patient states that right foot swelling began a little over a week ago.? Patient had been picking at some dried skin on his foot and he woke up the next day with significant edema to the right foot extending up the leg.? Patient had associated fevers in the beginning but has not had a fever and a couple days.? Patient has no known history of diabetes.? Patient is status post left hip replacement 3 weeks ago.? Patient denies pain but states that the foot feels very heavy and has a lot of pressure on the skin.? No history of neuropathy. 03/12/22? 2938 This is a 41-year-old male patient who has a history of athlete's feet and he has dry scaly peeling skin on the bottom of his feet.? The patient stated that he started to pick on the bottom of his right foot several days ago and then his foot started to swell 7 days ago.? T
--- NOTE | 2022-03-16 10:00 | P.PNIM_ITS ---
Progress Note: A&P Assessment and Plan (1) Cellulitis: Code(s): L03.90 - Cellulitis, unspecified Status: Acute Assessment and Plan: * history of cellulitis in the past some same foot * Redness, and warmth is dissipating, swelling is still prominent * Infection site identified between the 4th and 5th toes of the right foot. * Vancomycin and cefepime, add flagyl since WBC is still elevated * Tailor antibiotic to culture results. * White blood cell count on admission 16.5. currently 16.0 * Blood cultures no growth to date * Advise limb elevation (2) MITZI (acute kidney injury): Code(s): N17.9 - Acute kidney failure, unspecified Status: Acute Assessment and Plan: * 03/14/22 patient's creatinine elevated to 1.8 from 1.1. * Currently 2.50 * Most likely ATN from vanco and zosyn * No signs of dehydration on labs or exam * Fena score is 1.0 indicating ATN, intrinsic disease * Consider nephrology if continues to worsen. * Ultrasound negative for any abnormalities * Patient now on cefepime and vancomycin, added flagyl * Strict I&Os (3) Hypokalemia: Code(s): E87.6 - Hypokalemia Status: Acute Assessment and Plan: * Currently 3.9 * Replace as necessary * Magnesium level normal. (4) Hypertension: Code(s): I10 - Essential (primary) hypertension Status: Acute Assessment and Plan: * BP is 150/88 * Stop the losartan for now * Continue amlodipine, add hydralazine * Continue to trend Plan tried to start a new IV however not successful Time Spent With Patient Time: 52 minutes Time with patient: Greater than 35 minutes Subjective Date/time seen: 03/16/22 10:00 Interval history: 03/16/22 1000 Upon arrival To the room patient was noted to be profusely vomiting. Patient stated that he thinks that is the fur cleaner or the small as within the hospital. Patient stated that it just makes him very nauseated. He is able to eat and states that he has no sweats fevers or chills. He denies any chest pain, no shortness of breath. patient's leg does look better will have leg wrapped. Did consult Nephrology due to increased creatinine. 03/15/22 0930 Patient is doing ok. He denies any chest pain shortness of breath, nausea, vomiting, diarrhea, or constipation. He stated that he feels ok, he is just having problems with his swelling being persistent. Renal function is also worsening, will need to get nephrology on board if not better tomorrow. 03/14/22? 15:04 Patient states that right foot swelling began a little over a week ago.? Patient had been picking at some dried skin on his foot and he woke up the next day with significant edema to the right foot extending up the leg.? Patient had ass ociated fevers in the beginning but has not had a fever and a couple days.? Patient has no known history of diabetes.? Patient is status post left hip replacement 3 weeks ago.? Patient denies pain but states that the foot feels very heavy and has a lot of pressure on the skin.? No history of neuropathy. 03/13/22? 15:41 Patient resting in bed comfortably.? Patient states that right foot swelling began a little over a week ago.? Patient had been picking at some dried skin on his foot and he woke up the next day with significant edema to the right foot extending up the leg.? Patient had associated fevers in the beginning but has not had a fever and a couple days.? Patient has no known history of diabetes.? Patient is status post left hip re
--- NOTE | 2022-03-16 11:44 | PC.NURSE ---
Pt was actively vomiting when provider walked in. Provider ordered zofran for pt. Nurse pulled IV zofran, and returned due to loss of IV access. PO was then pulled and returned per provider request. IV was pulled per provider while provider attempted to get an IV on pt. Provider was unable to gain access. IV zofran returned and PO pulled and administered to pt.
[2022-03-16] MEDS: ONDANSETRON HCL ODT 4 MG TABLET PO (13:50)
[2022-03-16 14:00] VITALS: BP 133/86; PULSE 69; RESP 15; TEMP 36.2; O2SAT 100
[2022-03-16] MEDS: hydrALAZINE HCL 25 MG TABLET PO ×3 (14:00→20:43)
--- NOTE | 2022-03-16 15:38 | PM.CNNEP ---
Assessment and Plan Assessment and plan (1) MITZI (acute kidney injury): Code(s): N17.9 - Acute kidney failure, unspecified Status: Acute Assessment and Plan: baseline creatinine runs 1.1mg/dl thought to be secondary to infection (#2) versus previous antibiotics (vanco and zosyn) has had previous infections like this before without MITZI/ARF creatiine rising in the last few days -- now up to 2.5mg/dl no critical electrolytes and still making urine evaluation to date: renal ultrasound w/o obstruction urine eosinophils pending check CPK follow trend of repeat labs and UOP (2) Cellulitis of right foot: Code(s): L03.115 - Cellulitis of right lower limb Status: Acute Assessment and Plan: as noted by admission exam antibiotic adjusted/changed due to #1 clinical improvement noted follow culture data and WBC (3) Hypertension: Code(s): I10 - Essential (primary) hypertension Status: Chronic Assessment and Plan: reasonable control at this itme ARB on hold due to #1 follow trend of hemodynamics Will continue to follow. History of Present Illness Reason for Consult Consult date: 03/16/22 Reason for consult: acute renal failure Chief Complaint Chief complaint: Cellulitis History of Present Illness Narrative: The patient is a 41-year-old male with a past medical history as outlined below who presented to [facility] Emergency room due to right foot swelling /infection. The patient noted about seven days ago that he started having swelling in his right foot. This is further complicated by the fact that he had dry scale /peeling skin which she made to picking at for the last few days as well. He did see his primary care physician about this issue who prescribed him a course of Keflex since he has a known history of right foot cellulitis. Despite this, he noticed the swelling edema worsening in association with increased warmth and erythema. He presented to the ER for further assessment of this issue Workup and evaluation in the emergency room demonstrated the patient to be hemodynamically stable but seemed quite clear that his right foot at appear to be another episode of cellulitis as there was significant swelling /edema and erythema. Routine blood test demonstrated an elevated white blood cell count, relative anemia, and normal renal function with mild hypokalemia. He was negative for influenza A/B as well as COVID-19. Doppler of his right lower extremity was negative for DVT. After appropriate cultures were obtained, he was started on broad-spectrum IV antibiotic therapy and subsequent admitted to the hospital for further evaluation and therapy. Since his admission, his right foot cellulitis seems to be clinically improving however is been noted in the last several days that his kidney function has been slowly deteriorating. In spite of the renal dysfunction, he otherwise appears to be doing reasonably well. Renal consultation was requested due to his acute kidney injury/acute renal failure. The patient's baseline creatinine runs around 1.1 mg/dL and has done so since 2019. a few days into his hospitalization, his creatinine since the nahed to 1.8 mg/dL, then 2.3 mg/dL, and then 2.5 mg/dL by labs done this morning. There is no associated critical electrolyte abnormalities and he continues to make fairly reasonable urine output in spite of his acute injury to his kidneys. The concern has been that this change in his kidney function may be related to the IV vancomycin and Zosyn that was started on admission and these antibiotics have been discontinued in favor of his current regiment. Currently, at the time my visit, he does not appear to be in acute distress. Review of Systems Review of Systems: As per HPI. [facility] Past Medical History Medical History (Updated 03/18/22 @ 01:17 by Lam Knight MD) Eczema Hyperlipidemia H
[2022-03-16 17:24] LABS: Vancomycin Trough 23.7 ug/mL (10.0-20.0)
[2022-03-16 20:38] VITALS: BP 152/78; PULSE 66; RESP 16; TEMP 35.7; O2SAT 100
[2022-03-16] MEDS: EZETIMIBE 10 MG TABLET PO (20:42)
[2022-03-16] MEDS: ATORVASTATIN 40 MG TABLET 80 MG PO (20:43)
[2022-03-17] MEDS: metroNIDAZOLE 500 MG/ISO 100ML 500 MG/100 ML BAG 100 MG IVPB ×3 (05:14→22:49)
[2022-03-17 06:37] LABS: Basophils Absolute Auto 0.1 K/mm3 (0.0-0.1); Basophils Percent Auto 0.6 % (0.2-1.2); Eosinophils Absolute Auto 0.4 K/mm3 (0-0.3); Eosinophils Percent Auto 2.5 % (0-4.4); Hematocrit 34.5 % (42.0-52.0); Hemoglobin 10.7 g/dL (14.0-18.0); Immature Granulocyte Absolute 0.26 K/mm3 (0.00-0.031); Immature Granulocyte Percent A 1.7 % (0-0.5); Lymphocytes Absolute Auto 1.46 K/mm3 (0.9-3.2); Lymphocytes Percent Auto 9.7 % (18.3-44.2); Mean Corpuscular Hemoglobin 27.6 pg (26-34); Mean Corpuscular Volume 88.9 fl (80-100); Mean Platelet Volume 9.4 fl (7.4-10.4); Monocytes Absolute Auto 1.3 K/mm3 (0.1-0.6); Monocytes Percent Auto 8.7 % (2.6-8.5); Neutrophils Absolute Auto 11.5 K/mm3 (1.3-6.7); Neutrophils Percent Auto 76.8 % (45.5-73.1); Platelet Count Result 431 k/mm3 (150-375); Red Blood Count 3.88 M/mm3 (4.6-6.20); Red Cell Distribution Width 13.2 % (11.5-14.5)
[2022-03-17 06:41] VITALS: TEMP 36.1
[2022-03-17 06:45] LABS: Creatine Kinase < 20 U/L (55-170)
[2022-03-17 06:48] LABS: Albumin Level 3.3 g/dL (3.5-5.1); Anion Gap 6 mmol/L (8-16); Blood Urea Nitrogen 20 mg/dL (9-20); Calcium 8.5 mg/dL (8.4-10.2); Carbon Dioxide 24 mmol/L (22-30); Chloride 110 mmol/L (98-107); Estimated CRCL calculation 49 ml/min; Estimated Glomerular Filt Rate 36; Glucose 106 mg/dL (65-110); Phosphorus 3.4 mg/dL (2.5-4.5); Potassium 4.2 mmol/L (3.4-5.0); Sodium 140 mmol/L (137-145)
[2022-03-17] MEDS: ASCORBIC ACID 500 MG TABLET PO (08:37)
[2022-03-17] MEDS: ENOXAPARIN 40 MG/0.4 ML SYRINGE SUB-Q (08:37)
[2022-03-17] MEDS: amLODIPine BESYLATE 5 MG TABLET 10 MG PO (08:37)
[2022-03-17] MEDS: hydrALAZINE HCL 25 MG TABLET PO ×4 (08:37→22:11)
[2022-03-17] MEDS: MUPIROCIN 2% OINT 22 GM TUBE 1 APPLIC TOPICAL (08:42)
[2022-03-17] MEDS: EUCERIN CREAM 120 GM JAR 1 APPLIC TOPICAL (08:42)
--- NOTE | 2022-03-17 11:00 | PM.IMPN ---
Progress Note: A&P Assessment and Plan (1) Cellulitis: Code(s): L03.90 - Cellulitis, unspecified Status: Acute Assessment and Plan: history of cellulitis in the past some same foot Redness, and warmth is dissipating, swelling is still prominent Infection site identified between the 4th and 5th toes of the right foot. Vancomycin and cefepime, add flagyl since WBC is still elevated Tailor antibiotic to culture results. White blood cell count on admission 16.5. currently 16.0 Blood cultures no growth to date Advise limb elevation (2) MITZI (acute kidney injury): Code(s): N17.9 - Acute kidney failure, unspecified Status: Acute Assessment and Plan: 03/14/22 patient's creatinine elevated to 1.8 from 1.1. Currently 2.40 trending down Most likely ATN from vanco and zosyn No signs of dehydration on labs or exam Fena score is 1.0 indicating ATN, intrinsic disease Consider nephrology if continues to worsen. Ultrasound negative for any abnormalities Patient now on cefepime and vancomycin, added flagyl Strict I&Os (3) Hypokalemia: Code(s): E87.6 - Hypokalemia Status: Acute Assessment and Plan: Currently 4.2 Replace as necessary Magnesium level normal. (4) Hypertension: Code(s): I10 - Essential (primary) hypertension Status: Acute Assessment and Plan: BP is 152/78 Stop the losartan for now Continue amlodipine, add hydralazine Continue to trend Time Spent With Patient Time: 52 minutes Time with patient: Greater than 35 minutes Subjective Date/time seen: 03/17/22 1115 Interval history: 03/17/221114 Patient is doing ok. He is wanting to go home, because of the nausea that he is having with the hospital sap basis consultant. He is also stating that he is feeling ok. Creatinine is better today at 2.40 however, still remains relatively high. He is currently trending in the right direction will reevaluate tomorrow. 03/16/22 1000 Upon arrival To the room patient was noted to be profusely vomiting. Patient stated that he thinks that is the bottle packing machine cleaner or the small as within the hospital. Patient stated that it just makes him very nauseated. He is able to eat and states that he has no sweats fevers or chills. He denies any chest pain, no shortness of breath. patient's leg does look better will have leg wrapped. Did consult Nephrology due to increased creatinine. 03/15/22 0930 Patient is doing ok. He denies any chest pain shortness of breath, nausea, vomiting, diarrhea, or constipation. He stated that he feels ok, he is just having problems with his swelling being persistent. Renal function is also worsening, will need to get nephrology on board if not better tomorrow. 03/14/22? 15:04 Patient states that right foot swelling began a little over a week ago.? Patient had been picking at some dried skin on his foot and he woke up the next day with significant edema to the right foot extending up the leg.? Patient had associated fevers in the beginning but has not had a fever and a couple days.? Patient has no known history of diabetes.? Patient is status post left hip replacement 3 weeks ago.? Patient denies pain but states that the foot feels very heavy and has a lot of pressure on the skin.? No history of neuropathy. 03/13/22? 15:41 Patient resting in bed comfortably.? Patient states that right foot swelling began a little over a week ago.? Patient had been picking at some dried skin on his foot and he woke up the next day with significant edema to the right foot extending up the leg.? Patient had associated fevers in the beginning but has not had a fever and a couple days.? Patient has no known history of diabetes.? Patient is status post left hip replacement 3 weeks ago.? Patient denies pain but states that the foot feels very heavy and has a lot of pressure on the skin.? No history of neuropathy.
--- NOTE | 2022-03-17 11:14 | PM.PNNEP ---
Progress Note: A&P Assessment and Plan (1) MITZI (acute kidney injury): Code(s): N17.9 - Acute kidney failure, unspecified Status: Acute Assessment and Plan: mild improvement baseline creatinine runs 1.1mg/dl thought to be secondary to infection (#2) versus previous antibiotics (vanco and zosyn) has had previous infections like this before without MITZI/ARF creatinine possibly peaked/plateaed at 2.5mg/dl no critical electrolytes and still making urine evaluation to date: renal ultrasound w/o obstruction urine eosinophils pending CPK low follow trend of repeat labs and UOP (2) Cellulitis of right foot: Code(s): L03.115 - Cellulitis of right lower limb Status: Acute Assessment and Plan: as noted by admission exam antibiotic adjusted/changed due to #1 clinical improvement noted follow culture data and WBC (3) Hypertension: Code(s): I10 - Essential (primary) hypertension Status: Chronic Assessment and Plan: reasonable control at this itme ARB on hold due to #1 follow trend of hemodynamics Will continue to follow. Subjective Date/time seen: 03/17/22 11:14 Overall, he seems to be doing better; no apparent distress voiced at the time of my visit; anxious for discharge; creatinine a tad better by AM labs; no other issues/events overnight or earlier this morning. Exam Narrative: General: WD/WN AA male in NAD Heart: normal S1 and S2; no rub Lungs: clear to auscultation Abdomen: soft, nontender, nondistended, positive bowel sounds Extremities: no cyanosis or clubbing; 2+ edema Skin: right foot with MERYL wraps in place Objective Data Vital Signs Vital Signs: Vital Signs Temp Pulse Resp BP Pulse Ox O2 Del Method 03/17/22 08:00 Room Air 03/17/22 06:41 96.9 F L 03/16/22 20:00 Room Air 03/16/22 20:38 96.3 F L 66 16 152/78 H 100 03/16/22 14:00 97.1 F L 69 15 133/86 100 Intake/Output Intake/Output: Intake & Output 03/14/22 03/15/22 03/16/22 03/17/22 23:59 23:59 23:59 23:59 Intake Total 1702 1672 1670 0 Output Total 1400 1125 Balance 1702 272 545 0 Meds/Results Medications: Active Medications Generic Name Dose Route Start Last Admin Trade Name Freq PRN Reason Stop Dose Admin Amlodipine Besylate 10 mg 03/15/22 09:00 03/17/22 08:37 Amlodipine Besylate 5 Mg Tablet PO 10 mg QAM VONNIE Administration Ascorbic Acid 500 mg 03/13/22 09:00 03/17/22 08:37 Ascorbic Acid 500 Mg Tablet PO 500 mg DAILY VONNIE Administration Atorvastatin Calcium 80 mg 03/13/22 21:00 03/16/22 20:43 Atorvastatin 40 Mg Tablet PO 80 mg HS VONNIE Administration Ezetimibe 10 mg 03/13/22 21:00 03/16/22 20:42 Ezetimibe 10 Mg Tablet PO 10 mg HS VONNIE Administration Enoxaparin Sodium 40 mg 03/13/22 09:00 03/17/22 08:37 Enoxaparin 40 Mg/0.4 Ml Syringe SUB-Q 40 mg DAILY VONNIE Administration Ergocalciferol 50,000 units 03/13/22 09:00 03/13/22 08:33 Ergocalciferol 50,000 Units Capsule PO 50,000 units Mo@0900 VONNIE Administration Hydralazine HCl 10 mg 03/15/22 08:17 Hydralazine Hcl 20 Mg/Ml Vial IV PUSH Q8H PRN Blood Pressure - High Hydralazine HCl 25 mg 03/16/22 13:00 03/17/22 08:37 Hydralazine Hcl 25 Mg Tablet PO 25 mg QID VONNIE Administration Hydroxyzine HCl 25 mg 03/12/22 21:55 Hydroxyzine Hcl 25 Mg Tablet PO DAILY PRN Itching Metronidazole 500 mg in 100 mls @ 100 mls/hr 03/16/22 14:00 03/17/22 05:14 Flagyl 500 Mg/Iso Soln 100 Ml IVPB 100 mls/hr Q8H VONNIE Administration Cefepime HCl 2 gm in 50 mls @ 100 mls/hr 03/16/22 21:00 03/17/22 08:37 Maxipime 2 Gm/D5w 50 Ml IVPB 100 mls/hr Q12HR VONNIE Administration Vancomycin HCl 1,750 mg in 500 mls @ 250 mls/hr 03/17/22 05:00 03/17/22 05:15 Vancomycin 1,750 Mg/D5w 500 Ml IVPB 250 mls/hr Q36H VONNIE Administration Meloxicam 15 mg 03/13/22 09:00
[2022-03-17 15:42] VITALS: BP 139/77; PULSE 66; RESP 15; TEMP 36.1; O2SAT 100
[2022-03-17 21:45] LABS: Osmolality, Urine 272 mOsm/kg (50-1200)
[2022-03-17 22:00] VITALS: BP 147/97; PULSE 68; RESP 16; TEMP 36.1; O2SAT 100
[2022-03-17] MEDS: ATORVASTATIN 40 MG TABLET 80 MG PO (22:10)
[2022-03-17] MEDS: EZETIMIBE 10 MG TABLET PO (22:11)
[2022-03-18 05:30] VITALS: BP 181/104; PULSE 72; RESP 16; TEMP 36; O2SAT 100
[2022-03-18] MEDS: metroNIDAZOLE 500 MG/ISO 100ML 500 MG/100 ML BAG 100 MG IVPB (06:01)
[2022-03-18 07:02] LABS: Alanine Aminotransferase 31 U/L (6-50); Albumin Level 3.6 g/dL (3.5-5.1); Alkaline Phosphatase 126 U/L (38-126); Anion Gap 6 mmol/L (8-16); Aspartate Amino Transferase 41 U/L (17-59); Bilirubin,Total 0.7 mg/dL (0.2-1.3); Blood Urea Nitrogen 17 mg/dL (9-20); Calcium 8.9 mg/dL (8.4-10.2); Carbon Dioxide 23 mmol/L (22-30); Chloride 108 mmol/L (98-107); Estimated CRCL calculation 46 ml/min; Estimated Glomerular Filt Rate 33; Glucose 95 mg/dL (65-110); Potassium 3.6 mmol/L (3.4-5.0); Sodium 137 mmol/L (137-145)
[2022-03-18 08:05] VITALS: PULSE 72; RESP 16; O2SAT 100
[2022-03-18 08:20] LABS: Eosinophil Urine Rare % (None Seen)
[2022-03-18 08:23] LABS: Urine Eos QC 2nd Tech Confirmed
[2022-03-18] MEDS: amLODIPine BESYLATE 5 MG TABLET 10 MG PO (11:10)
[2022-03-18] MEDS: ASCORBIC ACID 500 MG TABLET PO (11:10)
[2022-03-18] MEDS: hydrALAZINE HCL 25 MG TABLET PO (11:10)
--- NOTE | 2022-03-18 11:33 | PM.PNNEP ---
Progress Note: A&P Assessment and Plan (1) MITZI (acute kidney injury): Code(s): N17.9 - Acute kidney failure, unspecified Status: Acute Assessment and Plan: MITZI. baseline creatinine runs 1.1mg/dl thought to be secondary to infection (#2) versus previous antibiotics (vanco and zosyn) has had previous infections like this before without MITZI/ARF he has rare eosinophils but only 2.5 % EF was improve for all smear. He has no rash. Urine eosinophils are recently thought to not be as specific or sensitive as before so I do not think this is allergic interstitial nephritis. Giving steroids in the setting of cellulitis might make the cellulitis worse anyway. evaluation to date: renal ultrasound w/o obstruction urine eosinophils rare CPK low Creatinine is a little higher today. Looking over the last few values it seems like it is varying around a mean of about 2.5. It would be nice to see his creatinine improved before discharge. If it does not improve he might need biopsy so stay in the hospital would not be totally vain as he is thinking. If he decides to sign out AMA then he should call Dr. Knight his office on Sunday morning to get labs done and an appointment to see him.. (2) Cellulitis of right foot: Code(s): L03.115 - Cellulitis of right lower limb Status: Acute Assessment and Plan: as noted by admission exam antibiotic adjusted/changed due to #1 clinical improvement noted WBC is still not normal yet. No fevers in the last few days (3) Hypertension: Code(s): I10 - Essential (primary) hypertension Status: Chronic Assessment and Plan: the last check of this blood pressure was high. Possibly anxious? Or possibly just recovering from infection. ARB on hold due to #1 If blood pressure is high on the next reading then would need an adjustment in his blood pressure medications. Will continue to follow. Subjective Date/time seen: 03/18/22 11:33 Interval history: Patient wants to go home. He is very anxious and wants to be discharged. His creatinine is stable but high and not improving. Sometimes this takes time. He feels like his cellulitis is better and for this reason he wants to go home. We discussed at length that his kidney function could get worse at home and he might come back in worse shape , even to the point that he might need dialysis. He is insistent on going home and wants to talk with Rajeev so he can get this arranged. He insinuated he would sign out AMA if not just discharged. I told him that if he does go home he should follow-up with Dr. Knight very closely. Exam Narrative: General: WD/WN AA male in NAD Heart: normal S1 and S2; no rub Or gallop Lungs: clear to auscultation Abdomen: soft, nontender, nondistended, positive bowel sounds Extremities:2+ edema Skin: right foot with MERYL wraps in place Objective Data Vital Signs Vital Signs: Vital Signs - 24 hr 03/17/22 15:42 03/17/22 22:00 03/18/22 05:30 Temperature 97.0 F L 97 F L 96.8 F L Pulse Rate 66 68 72 Respiratory Rate 15 16 16 Blood Pressure 139/77 147/97 H 181/104 H Pulse Oximetry 100 100 100 Intake/Output Intake/Output: Intake & Output 03/15/22 03/16/22 03/17/22 03/18/22 23:59 23:59 23:59 23:59 Intake Total 1672 1670 590 790 Output Total 1400 1125 300 Balance 272 545 590 490 Meds/Results Medications: Active Medications Generic Name Dose Route Start Last Admin Trade Name Freq PRN Reason Stop Dose Admin Amlodipine Besylate 10 mg 03/15/22 09:00 03/18/22 11:10 Amlodipine Besylate 5 Mg Tablet PO 10 mg QAM VONNIE Administration Ascorbic Acid 500 mg 03/13/22 09:00 03/18/22 11:10 Ascorbic Acid 500 Mg Tablet PO 500 mg DAILY VONNIE Administration Atorvastatin Calcium 80 mg 03/13/22 21:00 03/17/22 22:10 Atorvastatin 40 Mg Tablet PO 80 mg HS VONNIE Administration Ezetimibe 10 mg
--- NOTE | 2022-03-18 15:29 | P.DS_ITS ---
DS: Admitting Diagnosis Discharge Date 03/18/22 Admitting Diagnosis cellulitis of right lower extremity and MITZI DS: Discharge Diagnosis Discharge Diagnosis (1) Cellulitis: Code(s): L03.90 - Cellulitis, unspecified Status: Acute Assessment and Plan: * history of cellulitis in the past some same foot * Redness, and warmth is dissipating, swelling is still prominent * Infection site identified between the 4th and 5th toes of the right foot. * Vancomycin and cefepime, add flagyl since WBC is still elevated * Tailor antibiotic to culture results. * White blood cell count on admission 16.5. currently 16.0 * Blood cultures no growth to date * Advise limb elevation (2) MITZI (acute kidney injury): Code(s): N17.9 - Acute kidney failure, unspecified Status: Acute Assessment and Plan: * 03/14/22 patient's creatinine elevated to 1.8 from 1.1. * Currently 2.40 trending down * Most likely ATN from vanco and zosyn * No signs of dehydration on labs or exam * Fena score is 1.0 indicating ATN, intrinsic disease * Consider nephrology if continues to worsen. * Ultrasound negative for any abnormalities * Patient now on cefepime and vancomycin, added flagyl * Strict I&Os (3) Hypokalemia: Code(s): E87.6 - Hypokalemia Status: Acute Assessment and Plan: * Currently 4.2 * Replace as necessary * Magnesium level normal. (4) Hypertension: Code(s): I10 - Essential (primary) hypertension Status: Chronic Assessment and Plan: * BP is 152/78 * Stop the losartan for now * Continue amlodipine, add hydralazine * Continue to trend DS: Summary Hospital Course Hospital Course: patient is a 41-year-old male with a past medical history of athlete's feet, dry skin, hypertension who presented the ED with complaints of redness and swelling on the right lower extremity. Patient evidently was PICC is in scan off and when he did he did cause some trauma and infection went into his leg. When he presented is leg was red, hot, swollen. Patient currently been on Keflex however no improvement noted. Patient was started on IV vancomycin and Zosyn in the ED which then had been changed to cefepime and vancomycin. Flagyl was eventually added when white blood cells were staying in the high teens. Unfortunately the patient did experience some renal function issues and creatinine has got as high as 2.6. Nephrology was consulted ultrasound was done and negative for abnormalities. Venous score was calculated and showed intrinsic disease. Currently patient is feeling okay and is denying any chest pain, shortness a breath, nausea, vomiting, diarrhea, constipation, weakness or fatigue. Patient is wanting to be discharged however with creatinine rising patient is not stable for discharge at this time. Patient shows to leave AMA. Antibiotics and lab draw order has been given to the patient Time Spent with Patient Time attestation: Total time spent providing and/or coordinating discharge services: Exam Narrative: General: well-nourished, ill-appearing 41-year-old male, laying in bed, comfortable, NARD Neuro: awake, alert and oriented x4, speech clear, no focal neuro deficits noted HEENMT: normocephalic, atraumatic, EOMI, sclerae anicteric, moist oral mucosa Respiratory: Clear to auscultation bilaterally without crackles, rhonchi or wheezes, nonlabored breathing Cardio: regular rate, regular rhythm with S1-S2 Abdomen: nondistended, normoactive bowel sounds, sof
--- NOTE | 2022-03-18 15:29 | PM.DS ---
DS: Admitting Diagnosis Discharge Date 03/18/22 Admitting Diagnosis cellulitis of right lower extremity and MITZI DS: Discharge Diagnosis Discharge Diagnosis (1) Cellulitis: Code(s): L03.90 - Cellulitis, unspecified Status: Acute Assessment and Plan: history of cellulitis in the past some same foot Redness, and warmth is dissipating, swelling is still prominent Infection site identified between the 4th and 5th toes of the right foot. Vancomycin and cefepime, add flagyl since WBC is still elevated Tailor antibiotic to culture results. White blood cell count on admission 16.5. currently 16.0 Blood cultures no growth to date Advise limb elevation (2) MITZI (acute kidney injury): Code(s): N17.9 - Acute kidney failure, unspecified Status: Acute Assessment and Plan: 03/14/22 patient's creatinine elevated to 1.8 from 1.1. Currently 2.40 trending down Most likely ATN from vanco and zosyn No signs of dehydration on labs or exam Fena score is 1.0 indicating ATN, intrinsic disease Consider nephrology if continues to worsen. Ultrasound negative for any abnormalities Patient now on cefepime and vancomycin, added flagyl Strict I&Os (3) Hypokalemia: Code(s): E87.6 - Hypokalemia Status: Acute Assessment and Plan: Currently 4.2 Replace as necessary Magnesium level normal. (4) Hypertension: Code(s): I10 - Essential (primary) hypertension Status: Chronic Assessment and Plan: BP is 152/78 Stop the losartan for now Continue amlodipine, add hydralazine Continue to trend DS: Summary Hospital Course Hospital Course: patient is a 41-year-old male with a past medical history of athlete's feet, dry skin, hypertension who presented the ED with complaints of redness and swelling on the right lower extremity. Patient evidently was PICC is in scan off and when he did he did cause some trauma and infection went into his leg. When he presented is leg was red, hot, swollen. Patient currently been on Keflex however no improvement noted. Patient was started on IV vancomycin and Zosyn in the ED which then had been changed to cefepime and vancomycin. Flagyl was eventually added when white blood cells were staying in the high teens. Unfortunately the patient did experience some renal function issues and creatinine has got as high as 2.6. Nephrology was consulted ultrasound was done and negative for abnormalities. Venous score was calculated and showed intrinsic disease. Currently patient is feeling okay and is denying any chest pain, shortness a breath, nausea, vomiting, diarrhea, constipation, weakness or fatigue. Patient is wanting to be discharged however with creatinine rising patient is not stable for discharge at this time. Patient shows to leave AMA. Antibiotics and lab draw order has been given to the patient Time Spent with Patient Time attestation: Total time spent providing and/or coordinating discharge services: Exam Narrative: General: well-nourished, ill-appearing 41-year-old male, laying in bed, comfortable, NARD Neuro: awake, alert and oriented x4, speech clear, no focal neuro deficits noted HEENMT: normocephalic, atraumatic, EOMI, sclerae anicteric, moist oral mucosa Respiratory: Clear to auscultation bilaterally without crackles, rhonchi or wheezes, nonlabored breathing Cardio: regular rate, regular rhythm with S1-S2 Abdomen: nondistended, normoactive bowel sounds, soft, nontender to palpation Extremities: no edema, erythema, or tenderness to palpation, DP pulses 2+ bilaterally, right foot 4+ pitting edema with blistering, redness is better and warmth is not present. Skin: no rashes or lesions, warm and dry Psych: appropriate mood and affect, judgment and insight intact DS: Data Data Completed and Pending Labs on day of discharge: Labs from last 24 hours 03/18/22 03/18/22 03/15/22 05:5
== END 2022-03-18 11:57 | disposition left against medical advice (07) | DRG 383 ==
LOC: ANHED 16:15 → ANH3MEDSUR 17:09
PROVIDERS: Internal Medicine Critical Care Medicine; Internal Medicine Nephrology; Nurse Practitioner; Physician Assistant; Admitting Provider Internal Medicine; Emergency Provider Emergency Medicine; PCP Internal Medicine; Visit Provider Nurse Practitioner
DX: L03.115 Cellulitis of right lower limb (principal); N17.9 Acute kidney failure, unspecified; E55.9 Vitamin D deficiency, unspecified; E78.5 Hyperlipidemia, unspecified; B35.3 Tinea pedis; F17.210 Nicotine dependence, cigarettes, uncomplicated; E87.6 Hypokalemia; R11.2 Nausea with vomiting, unspecified; I10 Essential (primary) hypertension; M19.90 Unspecified osteoarthritis, unspecified site; Z20.822 Contact with and (suspected) exposure to COVID-19; Z96.642 Presence of left artificial hip joint; Z96.653 Presence of artificial knee joint, bilateral
CPT/HCPCS: 36415; 73620; 76775; 80053; 80069; 80202; 81003; 82550; 82570; 83036; 83605; 83615; 83735; 83935; 84300; 84443; 84540; 85025; 85610; 85730; 85999; 87040; 87636; 93971; 96365; 96366; 96367; 96372; 96375; 96376; 99285; A9270; G0378; G0379; J0692; J1650; J2543; J3370

== ENCOUNTER 2022-06-19 13:16 | Outpatient (CLI) | payer OTHER, SELFPAY ==
--- NOTE | ~2022-06-19 | XR_ITS ---
AP view of the pelvis and AP and lateral views of the bilateral hips Clinical history: Pain Findings: No acute fracture or dislocation is seen. Left hip arthroplasty hardware is in place. No du rdware complication seen. There is mild degenerative change of the right hip joint. Soft tissues are unremarkable. Impression: No fracture or dislocation. Left hip arthroplasty without evidence of hardware complication. Mild degenerative change of the right hip joint. Reviewed, dictated and finalized at location M. Impression: No fracture or dislocation. Left hip arthroplasty without evidence of hardware complication. Mild degenerative change of the right hip joint.
== END 2022-06-19 13:17 | disposition home or self-care (01) ==
PROVIDERS: PCP Internal Medicine; Visit Provider Internal Medicine
DX: M16.11 Unilateral primary osteoarthritis, right hip (principal)
CPT/HCPCS: 73521

== ENCOUNTER 2023-01-03 11:16 | Outpatient (CLI) | payer OTHER, SELFPAY ==
[2023-01-03 12:31] LABS: HIV 1/2 Ab P24 Ag Result Negative (Negative)
[2023-01-03 12:54] LABS: Trichomonas Vag PCR NOT DETECTED (NOT DETECTE)
[2023-01-04 03:30] LABS: Chlamydia trachomatis NOT DETECTED (NOT DETECTE); Neisseria gonorrhoeae PCR NOT DETECTED (NOT DETECTE)
[2023-01-04 13:18] LABS: Rapid Plasma Reagin Non-Reactive (NonReactive)
== END 2023-01-03 11:17 | disposition home or self-care (01) ==
LOC: ANHLAB 11:18
PROVIDERS: PCP Internal Medicine; Visit Provider Internal Medicine
DX: Z11.3 Encounter for screening for infections with a predominantly sexual mode of transmission (principal)
CPT/HCPCS: 36415; 86592; 86703; 87491; 87591; 87661; G0432

== ENCOUNTER 2024-01-01 21:32 | Emergency (ER) | payer OTHER, SELFPAY ==
--- NOTE | ~2024-01-01 | XR_ITS ---
EXAM: XR hand RT min 3V DATE: 01/01/2024 22:11 HISTORY: pain s/p fall . COMPARISON: None available. FINDINGS: Normal mineralization. No fracture or dislocation. Chronic appearing calcification/ossific ation adjacent to the right fifth PIP joint. No lytic or blastic lesion. Joint spaces are maintained. No erosion or periosteal change. Laceration overlying the fourth DIP joint. IMPRESSION: No acute osseous finding in the right hand. Reviewed, dictated and finalized at location K. TIC TECHNOLOGIST
--- NOTE | ~2024-01-01 | XR_ITS ---
EXAM: XR knee LT 3V DATE: 01/01/2024 22:11 HISTORY: pain s/p fall . COMPARISON: 03/16/2016. FINDINGS: Normal mineralization. No fracture. The patella is displaced superiorly, with a gap noted in the proximal aspect of the patellar tendon and undulation of the remaining intact tendon. 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 No lytic or blastic les ion. Mild tricompartmental osteoarthritis. No erosion or periosteal change. Subcutaneous stranding ab out the patellar tendon. IMPRESSION: Patellar tendon tear. No acute osseous finding in the left knee. Reviewed, dictated and finalized at location K. WARE TECHNICIAN
[2024-01-01 21:33] VITALS: BP 174/118; PULSE 65; RESP 15; TEMP 36.8; O2SAT 98
[2024-01-01] MEDS: MORPHINE SULFATE (*CRX) 4 MG/ML INJ IV PUSH (22:09)
[2024-01-01] MEDS: TETANUS,DIPHTHERIA,AC PERTUSSIS ADULT (0.5 ML) BOOSTRIX IM (22:10)
[2024-01-02] VITALS: BP 156/90; PULSE 67; RESP 15; O2SAT 98
--- NOTE | 2024-01-02 00:28 | ED.GENADULT ---
HPI - General Adult General Chief complaint: Fall <Jesus Wall MD - Last Filed: 01/02/24 01:40> Stated complaint: fall, ?patella dislocation, R ring finger avulsion <Jesus Wall MD - Last Filed: 01/02/24 01:40> Time Seen by Provider: 01/01/24 21:45 <Jesus Wall MD - Last Filed: 01/02/24 01:40> History of Present Illness HPI narrative: Patient is a 43-year-old gentleman who presents emergency department with chief complaint of left leg pain. Patient also reports that he has laceration to his right hand. The patient reports he was walking and steps missed a step and felt a pop in his left knee. The patient reports that has pain with range of motion reports that his knee feels strange. The patient reports that he has had a prior meniscal injury to that knee <Jesus Wall MD - Last Filed: 01/02/24 01:40> Related Data Home medications: Home Medications Medication Instructions Recorded Confirmed ascorbic acid (vitamin C) 500 mg 500 mg PO DAILY 03/12/22 03/12/22 chewable tablet atorvastatin 80 mg tablet 80 mg PO HS 03/12/22 03/12/22 cephalexin 500 mg capsule 500 mg PO BID 03/12/22 03/12/22 cholecalciferol (vitamin D3) 1,250 1,250 mcg PO WEEKLY 03/12/22 03/12/22 mcg (50,000 unit) tablet ezetimibe 10 mg tablet 10 mg PO HS 03/12/22 03/12/22 hydroxyzine HCl 25 mg tablet 25 mg PO PRN itch 03/12/22 03/12/22 losartan 100 mg tablet 100 mg PO DAILY 03/12/22 03/12/22 meloxicam 15 mg tablet 15 mg PO DAILY 03/12/22 03/12/22 <Jesus Wall MD - Last Filed: 01/02/24 01:40> Allergies/adverse reactions: Allergies Allergy/AdvReac Type Severity Reaction Status Date / Time Sulfa (Sulfonamide Allergy Unknown Blister Verified 03/12/22 14:21 Antibiotics) <Jesus Wall MD - Last Filed: 01/02/24 01:40> Review of Systems Review of Systems: A 10 system review of systems was completed on the patient and is negative except for what is stated in the HPI. Nursing and ancillary documentation was reviewed. <Jesus Wall MD - Last Filed: 01/02/24 01:40> [facility] Past Medical History Medical History: Medical History Eczema Hyperlipidemia Hypertension Left knee injury 03/2016- Left anteromedial knee hematoma-Aspiration Mcgregor-Schlatter/osteochondroses Osteoarthritis Vitamin D deficiency <Jesus Wall MD - Last Filed: 01/02/24 01:40> Surgical History Surgical History: Surgical History History of left hip replacement Total knee replacement status Bilateral <Jesus Wall MD - Last Filed: 01/02/24 01:40> Family History Family History: Family History Grandparent Hypertension Glaucoma MIKE on CPAP <Jesus Wall MD - Last Filed: 01/02/24 01:40> Social History Social History: Social History Social History: The patient stated that he smokes 1 pack in about 3-4 days. The patient is currently unemployed. He has a significant other but is classified is single. He has no children. The patient stated that he has not smoked in a week. He denies any alcohol disease. Code status full code Smoking packs per day: 0.25 Smoking cigarettes per day: 5.0 Smoking status: Current every day smoker Tobacco type: cigarettes Alcohol intake: never Substance use: never Lack of Transportation: No Lack of Food: Never True Current Housing: I Have Housing Concerned About Future Housing: No Difficulty Paying Gas/Electric Bills: No Difficulty Paying for Meds: No Currently Unemployed: YES Education: Associate Degree Difficulty w/ Childcare or Family Care: No Living arrangements: with family Gender identity (if verbalized by the patient): Male Spiritual care concerns: No <Jesus Wall MD - Last Filed: 01/02/24 01:40> Exam Narrative: GENERAL: Well-appearing, well-nourished, and in no acute distress. HEAD: Normocephalic, atraumatic. EYES: PERRLA and EOMI. ENT: Nares clear, no rhinorrhea or epistaxis. Mucous membranes moist. NECK: Supple. CHEST: Clear to auscultation. No respiratory distress. HEART: Regular rate and rhythm. No murmur heard. Normal peripheral pulses. ABDOMEN: Soft, nontender, nondistended, normal active bowel sounds. EXTREMITIES: Normal range of motion except and left lower extremity the patient has a high-riding patella on exam, there is a laceration present to the 4th digit to the right hand. No edema. SKIN: Warm, dry, no rash. NEURO: No focal deficits. Alert and oriented x3. PSYCH: Normal mood and affect. <Jesus Wall MD - Last Filed: 01/02/24 01:40> Course Vital Signs Vital signs: Vital Signs Temperature 98.2 F 01/01/24 21:33 Pulse Rate 65 01/01/24 21:33 Respiratory Rate 15 01/01/24 21:33 Blood Pressure 174/118 H 01/01/24 21:33 Pulse Oximetry 98 01/01/24 21:33 Oxygen Delivery Room Air 01/01/24 21:33 Temperature 98.2 F 01/01/24 21:33 Pulse Rate 63 01/02/24 01:57 Respiratory Rate 14 01/02/24 01:57 Blood Pressure 152/88 H 01/02/24 01:57 Pulse Oximetry 100 01/02/24 01:57 Oxygen Delivery Room Air 01/01/24 21:33 <Jesus Wall MD - Last Filed: 01/02/24 01:40> Vital Signs Temperature 98.2 F 01/01/24 21:33 Pulse Rate 65 01/01/24 21:33 Respiratory Rate 15 01/01/24 21:33 Blood Pressure 174/118 H 01/01/24 21:33 Pulse Oximetry 98 01/01/24 21:33 Oxygen Delivery Room Air 01/01/24 21:33 Temperature 98.2 F 01/01/24 21:33 Pulse Rate 63 01/02/24 01:57 Respiratory Rate 14 01/02/24 01:57 Blood Pressure 152/88 H 01/02/24 01:57 Pulse Oximetry 100 01/02/24 01:57 Oxygen Delivery Room Air 01/01/24 21:33 <DANY Mcdonnell Last Filed: 01/02/24 02:44> Procedures Laceration Laceration 1: Date: 01/02/24 <DANY Mcdonnell Last Filed: 01/02/24 02:44> Time: 00:54 <DANY Mcdonnell Last Filed: 01/02/24 02:44> Site: hand <DANY Mcdonnell Last Filed: 01/02/24 02:44> Side (If applicable): right <DANY Mcdonnell Last Filed: 01/02/24 02:44> Size (cm): 3 <DANY Mcdonnell Last Filed: 01/02/24 02:44> Description: flap <DANY Mcdonnell Last Filed: 01/02/24 02:44> Depth: simple, single layer <DANY Mcdonnell Last Filed: 01/02/24 02:44> Local Anesthetic: lidocaine 1% <DANY Mcdonnell Last Filed: 01/02/24 02:44> Amount of anesthesia used (mL): 2 <DANY Mcdonnell Last Filed: 01/02/24 02:44> Pre-repair: wound explored and irrigated <DANY Mcdonnell Last Filed: 01/02/24 02:44> ====== Skin Level ======: Skin layer closed with: nylon <DANY Mcdonnell Last Filed: 01/02/24 02:44> Size (cm): 4-0 <DANY Mcdonnell Last Filed: 01/02/24 02:44> Number of sutures: 6 <DANY Mcdonnell Last Filed: 01/02/24 02:44> Technique: simple, interrupted <Mary De La Cruz PA-C - Last Filed: 01/02/24 02:44> ====== Subcutaneous Layer ======: ====== Muscle Layer ======: ====== Tendon Layer ======: Medical Decision Making MDM Narrative Medical decision making narrative: Differential diagnosis includes patellar tendon tear, patellar fracture, patellar dislocation, hand laceration Patient's laceration showed no evidence of nerve injury or tendon injury. Plain film x-rays of the left knee showed evidence of a patellar tendon rupture The case was discussed with Dr. Hernandez who recommended referring the patient to a tertiary care orthopedic group <Jseus Wall MD - Last Filed: 01/02/24 01:40> Vital Signs Vital Signs: Vital Signs Temperature 98.2 F 01/01/24 21:33 Pulse Rate 65 01/01/24 21:33 Respiratory Rate 15 01/01/24 21:33 Blood Pressure 174/118 H 01/01/24 21:33 Pulse Oximetry 98 01/01/24 21:33 Oxygen Delivery Room Air 01/01/24 21:33 Temperature 98.2 F 01/01/24 21:33 Pulse Rate 63 01/02/24 01:57 Respiratory Rate 14 01/02/24 01:57 Blood Pressure 152/88 H 01/02/24 01:57 Pulse Oximetry 100 01/02/24 01:57 Oxygen Delivery Room Air 01/01/24 21:33 <Jesus Wall MD - Last Filed: 01/02/24 01:40> Vital Signs Temperature 98.2 F 01/01/24 21:33 Pulse Rate 65 01/01/24 21:33 Respiratory Rate 15 01/01/24 21:33 Blood Pressure 174/118 H 01/01/24 21:33 Pulse Oximetry 98 01/01/24 21:33 Oxygen Delivery Room Air 01/01/24 21:33 Temperature 98.2 F 01/01/24 21:33 Pulse Rate 63 01/02/24 01:57 Respiratory Rate 14 01/02/24 01:57 Blood Pressure 152/88 H 01/02/24 01:57 Pulse Oximetry 100 01/02/24 01:57 Oxygen Delivery Room Air 01/01/24 21:33 <Mary De La Cruz PA-C - Last Filed: 01/02/24 02:44> Discharge Plan Discharge Clinical Impression: Laceration of right ring finger, Avulsion of left patellar tendon <Jesus Wall MD - Last Filed: 01/02/24 01:40> Patient Disposition: Home, Self-Care <Jesus Wall MD - Last Filed: 01/02/24 01:40> Condition: Stable <Jesus Wall MD - Last Filed: 01/02/24 01:40> Instructions: Antibiotic Form, Crutch Instructions (ED), Finger Laceration (ED), Tendon Rupture (ED) <Jesus Wall MD - Last Filed: 01/02/24 01:40> Additional Instructions: Please call the [facility] orthopedics clinic number to schedule an appointment if you are unable to see them you may follow-up with Dr. Hernandez he will most likely need to refer you to a additional master lay out specialist The number for [facility] orthopedics is [phone] <Jessu Wall MD - Last Filed: 01/02/24 01:40> Prescriptions: New hydrocodone-acetaminophen 5-325 mg tablet 1 tablet PO Q6H PRN (Reason: pain) 3 Days Qty: 12 0RF No Action mupirocin 2 % ointment 1 applic TOPICAL BID 5 Days Qty: 30 0RF Rx Instructions: eczema outbreak atorvastatin 80 mg tablet 80 mg PO HS meloxicam 15 mg tablet 15 mg PO DAILY cephalexin 500 mg capsule 500 mg PO BID hydroxyzine HCl 25 mg tablet 25 mg PO PRN losartan 100 mg tablet 100 mg PO DAILY ezetimibe 10 mg tablet 10 mg PO HS ascorbic acid (vitamin C) [Chewable Vitamin C] 500 mg Tablet,Chewable 500 mg PO DAILY cholecalciferol (vitamin D3) 1,250 mcg (50,000 unit) Tablet 1,250 mcg PO WEEKLY Rx Instructions: takes every sunday doxycycline hyclate 100 mg capsule 100 mg PO BID Qty: 20 0RF amoxicillin-pot clavulanate 875-125 mg tablet 1 tablet PO Q12H Qty: 20 0RF <Jesus Wall MD - Last Filed: 01/02/24 01:40> Follow-up/Referrals: Gage Henrandez MD [Physician] - Lalitha,MD Simona [Primary Care Provider] - <Jesus Wall MD - Last Filed: 01/02/24 01:40> Time of Disposition: 01:31 <Jesus Wall MD - Last Filed: 01/02/24 01:40> 01:31 <aMry De La Cruz PA-C - Last Filed: 01/02/24 02:44>
[2024-01-02] MEDS: KETOROLAC 30 MG/ML VIAL (*BKC) IV PUSH (01:14)
[2024-01-02 01:57] VITALS: BP 152/88; PULSE 63; RESP 14; O2SAT 100
== END 2024-01-02 02:00 | disposition home or self-care (01) ==
PROVIDERS: Emergency Provider Emergency Medicine; PCP Internal Medicine
DX: S76.192A Other specified injury of left quadriceps muscle, fascia and tendon, initial encounter (principal); S61.214A Laceration without foreign body of right ring finger without damage to nail, initial encounter; Z23 Encounter for immunization; I10 Essential (primary) hypertension; E78.5 Hyperlipidemia, unspecified; E55.9 Vitamin D deficiency, unspecified; M19.90 Unspecified osteoarthritis, unspecified site; Z96.642 Presence of left artificial hip joint; Z96.653 Presence of artificial knee joint, bilateral; F17.210 Nicotine dependence, cigarettes, uncomplicated; W10.9XXA Fall (on) (from) unspecified stairs and steps, initial encounter
CPT/HCPCS: 12002; 73130; 73562; 90471; 90715; 96374; 99284; J1885; J2270